=== PATIENT | female | born 1970 | race Caucasian/White ===

== ENCOUNTER 2017-01-01 07:28 | Emergency (ER) | payer OTHER ==
[~2017-01-01] VITALS: Ht 165.1 cm; Wt 45.4 kg
[~2017-01-01 07:28] MED LIST: ALPR0.5T PO; DIAZ5TAB4 PO; NAPR500T8 PO
[2017-01-01 07:46] VITALS: BP 129/79
[2017-01-01] MEDS ORDERED: AZIT250T6 PO (08:02)
[2017-01-01] MEDS ORDERED: PRED20TA PO (08:02)
--- NOTE | 2017-01-01 14:46 | ED.ADGEN ---
Past History Past Medical History: Anxiety, Asthma, Depression Past Surgical History: Hysterectomy, Tonsillectomy Smoking: Cigarettes Additional Smoking Information: 1/2 PACK A DAY Alcohol Use: None Drug Use: None Adult General HPI HPI Patient is a 46-year-old female presents emergency department complaining of cough and congestion over the last 4 days. She does have a history of asthma and is currently a smoker. Patient states that she has had a throat lasted for her symptoms but no other prehospital intervention. Subjective fevers. Review of Systems Review of Systems Constitutional: Denies fever or chills [] Eyes: Denies change in visual acuity, redness, or eye pain [] HENT: Denies nasal congestion or sore throat [] Respiratory: Denies cough or shortness of breath [] Cardiovascular: No additional information not addressed in HPI [] GI: Denies abdominal pain, nausea, vomiting, bloody stools or diarrhea [] : Denies dysuria or hematuria [] Musculoskeletal: Denies back pain or joint pain [] Integument: Denies rash or skin lesions [] Neurologic: Denies headache, focal weakness or sensory changes [] Endocrine: Denies polyuria or polydipsia [] Allergies Allergies Allergies Coded Allergies Type Severity Reaction Last Updated Verified nitrofurantoin Allergy Severe sob/anxiety 04/30/16 Yes Physical Exam Physical Exam Constitutional: Well developed, well nourished, no acute distress, non-toxic appearance. [] HENT: Normocephalic, atraumatic, bilateral external ears normal, oropharynx moist, no oral exudates, nose normal. [] Eyes: PERRLA, EOMI, conjunctiva normal, no discharge. [] Neck: Normal range of motion, no tenderness, supple, no stridor. [] Cardiovascular:Heart rate regular rhythm, no murmur [] Lungs & Thorax: Bilateral breath sounds course to auscultation [] Abdomen: Bowel sounds normal, soft, no tenderness, no masses, no pulsatile masses. [] Skin: Warm, dry, no erythema, no rash. [] Back: No tenderness, no CVA tenderness. [] Extremities: No tenderness, no cyanosis, no clubbing, ROM intact, no edema. [] Neurologic: Alert and oriented X 3, normal motor function, normal sensory function, no focal deficits noted. [] Psychologic: Affect normal, judgement normal, mood normal. [] Current Patient Data Vital Signs Vital Signs Date Time Temp Pulse Resp B/P Pulse Ox O2 Delivery O2 Flow Rate FiO2 01/01/17 07:46 98.2 99 18 97 Room Air EKG EKG [] Radiology/Procedures Radiology/Procedures [] Course & Med Decision Making Course & Med Decision Making Pertinent Labs and Imaging studies reviewed. (See chart for details) Overall, the patient looks fairly well. She by has an upper story infection versus bronchitis however given her comorbidities of asthma and tobaccoism I do not find unreasonable start her on azithromycin as well as a steroid burst. She is given further supportive care and follow-up instructions. [] Final Impression Final Impression Acute bronchitis [] Problems: Dragon Disclaimer Dragon Disclaimer This electronic medical record was generated, in whole or in part, using a voice recognition dictation system. KOTA EARLY MD Jan 01, 2017 14:46
== END 2017-01-01 08:10 | disposition home or self-care (01) ==
LOC: ER 07:28
DX: J20.9 Acute bronchitis, unspecified (principal); J45.909 Unspecified asthma, uncomplicated; F17.210 Nicotine dependence, cigarettes, uncomplicated; Z88.8 Allergy status to other drugs, medicaments and biological substances
CPT/HCPCS: 99283

== ENCOUNTER → 2017-11-16 | Outpatient (CLI) | payer OTHER ==
[~2017-11-16] MED LIST changes: +AZIT250T6 PO; +PRED20TA PO
[2017-11-16 08:03] LABS: BASO # 0.1 x10^3/uL (0.0-0.2); BASO % 1 % (0-3); EOS # 0.3 x10^3/uL (0.0-0.7); EOS % 5 % (0-3); HEMATOCRIT 43.8 % (36.0-47.0); HEMOGLOBIN 15.1 g/dL (12.0-15.5); LYMPH # 2.9 x10^3/uL (1.0-4.8); LYMPH % 38 % (24-48); MEAN CORPUSCULAR HEMOGLOBIN 32 pg (25-35); MEAN CORPUSCULAR HGB CONC 34 g/dL (31-37); MEAN CORPUSCULAR VOLUME 92 fL (79-100); MONO # 0.6 x10^3/uL (0.0-1.1); MONO % 8 % (0-9); NEUT # 3.6 x10^3uL (1.8-7.7); NEUT % 48 % (31-73); PLATELET COUNT 249 x10^3/uL (140-400); RED BLOOD COUNT 4.75 x10^6/uL (3.50-5.40); RED CELL DISTRIBUTION WIDTH 13.2 % (11.5-14.5); WHITE BLOOD COUNT 7.5 x10^3/uL (4.0-11.0)
== END | disposition home or self-care (01) ==
LOC: LAB 07:32
PROVIDERS: ATTEND Family Medicine
DX: J02.9 Acute pharyngitis, unspecified (principal)
CPT/HCPCS: 36415; 85025; 87070; 87880

== ENCOUNTER → 2017-11-25 | Outpatient (CLI) | payer OTHER ==
[2017-11-25 14:19] LABS: FREE T4 0.73 ng/dL (0.76-1.46); THYROID STIM HORMONE (TSH) 6.342 uIU/mL (0.358-3.740)
== END | disposition home or self-care (01) ==
LOC: LAB 10:03
PROVIDERS: ATTEND Family Medicine
DX: R53.83 Other fatigue (principal); R63.5 Abnormal weight gain
CPT/HCPCS: 84439; 84443

== ENCOUNTER 2018-07-04 21:39 | Emergency (ER) | payer OTHER ==
[~2018-07-04] VITALS: Ht 165.1 cm; Wt 65.8 kg
[2018-07-04 21:57] VITALS: BP 105/80
[2018-07-04] MEDS ORDERED: IBUPROFEN 400 MG TABLET. PO ONE (22:15)
--- NOTE | 2018-07-04 22:28 | RAD ---
History: Injury, pain. Comparison: None. Findings: PA, lateral, and oblique views of the left wrist. No acute fracture or dislocation is identified. PA, lateral, and oblique views of the left hand. No acute fracture or dislocation is identified. Suture anchor can be seen involving the ulnar base of the 1st proximal phalanx. Impression: No acute osseous traumatic injury identified in the left wrist or left hand. Electronically signed by: Pancho Baker MD (07/04/2018 10:25 PM) [facility]
--- NOTE | 2018-07-04 22:55 | PHYS DOC ---
Past History Past Medical History: Anxiety, Asthma, Depression Past Surgical History: Hysterectomy, Tonsillectomy Smoking: Cigarettes Alcohol Use: None Drug Use: None Adult General Chief Complaint Chief Complaint: UPPER EXTREMITY INJURY HPI HPI 47-year-old female presents with mechanical trip and fall while going into work at [employer] just prior to arrival. Reports fell on outstretched left hand and wrist with subsequent pain. Denies deformity. Denies head trauma or neck pain. Denies use of blood thinners. Review of Systems Review of Systems Constitutional: Denies fever or chills [] Eyes: Denies change in visual acuity, redness, or eye pain [] HENT: Denies nasal congestion or sore throat [] Respiratory: Denies cough or shortness of breath [] Cardiovascular: Denies chest pain or palpitations GI: Denies abdominal pain, nausea, vomiting, or diarrhea [] : Denies dysuria or hematuria [] Musculoskeletal: Denies back pain; reports left hand/wrist pain Integument: Denies rash or skin lesions [] Neurologic: Denies headache, focal weakness or sensory changes [] Complete systems were reviewed and found to be within normal limits, except as documented in this note. Current Medications Current Medications Current Medications Medications (Trade) Dose Ordered Sig/Nahun Start Time Stop Time Status Last Admin Dose Admin Ibuprofen (Motrin) 400 mg 1X ONCE 07/04/18 22:15 07/04/18 22:19 DC 07/04/18 22:30 400 MG Allergies Allergies Allergies Coded Allergies Type Severity Reaction Last Updated Verified nitrofurantoin Allergy Severe sob/anxiety 04/30/16 Yes Physical Exam Physical Exam Constitutional: Well developed, well nourished, no acute distress, non-toxic appearance. [] HENT: Normocephalic, atraumatic Eyes: Conjunctiva normal, no discharge. [] Neck: Normal range of motion, no midline tenderness, supple Cardiovascular: Heart rate regular rhythm, no murmur [] Lungs & Thorax: Bilateral breath sounds clear to auscultation [] Abdomen: Soft, no tenderness Skin: Warm, dry, no erythema, no rash. [] Back: No tenderness, no CVA tenderness. [] Extremities: left wrist and hand with pain to lateral aspect, Small contusion/ abrasion noted, no laceration Neurologic: Alert and oriented X 3, normal motor function, normal sensory function, no focal deficits noted. [] Psychologic: Affect normal, judgement normal, mood normal. [] Current Patient Data Vital Signs Vital Signs Date Time Temp Pulse Resp B/P (MAP) Pulse Ox O2 Delivery O2 Flow Rate FiO2 07/04/18 21:57 97.7 78 18 96 Room Air EKG EKG [] Radiology/Procedures Radiology/Procedures PROCEDURE: WRIST 3V LEFT History: Injury, pain. Comparison: None. Findings: PA, lateral, and oblique views of the left wrist. No acute fracture or dislocation is identified. PA, lateral, and oblique views of the left hand. No acute fracture or dislocation is identified. Suture anchor can be seen involving the ulnar base of the 1st proximal phalanx. Impression: No acute osseous traumatic injury identified in the left wrist or left hand. Electronically signed by: Pancho Baker MD (07/04/2018 10:25 PM) [facility] PROCEDURE: HAND LEFT 3V History: Injury, pain. Comparison: None. Findings: PA, lateral, and oblique views of the left wrist. No acute fracture or dislocation is identified. PA, lateral, and oblique views of the left hand. No acute fracture or dislocation is identified. Suture anchor can be seen involving the ulnar base of the 1st proximal phalanx. Impression: No acute osseous traumatic injury identified in the left wrist or left hand. Electronically signed by: Pancho Baker MD (07/04/2018 10:25 PM) [facility] Course & Med Decision Making Course & Med Decision Making 47-year-old female presents with mechanical trip and fall onto left wrist and hand with subsequent pain to 4th and 5th metacarpals. Symptomatic treatment provided. Ice applied. X-ray obtained without acute fracture or dislocation. [place] wrist splint applied. Patient stable for discharge with outpatient follow-up with PCP/orthopedics. Orthopedic referral provided. Discussed findings and plan with patient, who acknowledges understanding and agreement. Dragon Disclaimer Dragon Disclaimer This electronic medical record was generated, in whole or in part, using a voice recognition dictation system. Splinting Splinting : Location: left wrist Pre-Made Type: velcro (universal wrist splint) Pre-Proc Neuro Vasc Exam: normal Post-Proc Neuro Vasc Exam: normal, unchanged from pre-exam Departure Departure: Impression: Primary Impression: Left wrist sprain Disposition: 01 HOME, SELF-CARE Condition: STABLE Referrals: ANYI DONAHUE (PCP) Patient Instructions: RICE - Routine Care for Injuries, [id number], Wrist Splint, [id number], Wrist Sprain with Rehab-SportsMed Additional Instructions: Use over the counter Tylenol or Ibuprofen for pain or discomfort. Problem Qualifiers Primary Impression: Left wrist sprain Encounter type: initial encounter Qualified Codes: S63.502A - Unspecified sprain of left wrist, initial encounter PANCHO GOMEZ DO Jul 04, 2018 22:55
== END 2018-07-04 23:00 | disposition home or self-care (01) ==
LOC: ER 21:39
DX: S63.502A Unspecified sprain of left wrist, initial encounter (principal); J45.909 Unspecified asthma, uncomplicated; F17.210 Nicotine dependence, cigarettes, uncomplicated; Z88.8 Allergy status to other drugs, medicaments and biological substances; W01.0XXA Fall on same level from slipping, tripping and stumbling without subsequent striking against object, initial encounter; Y93.89 Activity, other specified; Y92.89 Other specified places as the place of occurrence of the external cause; Y99.0 Civilian activity done for income or pay
CPT/HCPCS: 29125; 73110; 73130; 99284

== ENCOUNTER 2019-01-18 19:12 | Emergency (ER) | payer OTHER ==
[~2019-01-18] VITALS: Ht 165.1 cm; Wt 65.9 kg
[2019-01-18] MEDS ORDERED: IOHEXOL 300 MG/ML 75 ML VIAL. IV ONE (20:00)
[2019-01-18] MEDS ORDERED: MORPHINE SULFATE 4 MG/ML DISP.SYRIN. IV/SQ PRN (20:00)
--- NOTE | 2019-01-18 20:07 | PHYS DOC ---
Past History Past Medical History: Anxiety, Asthma, Depression Past Surgical History: Hysterectomy, Tonsillectomy Smoking: Cigarettes Alcohol Use: None Drug Use: None Adult General Chief Complaint Chief Complaint: ABDOMINAL PAIN HPI HPI Patient is a 48 y/o WF, who presents to the emergency department for evaluation of abdominal pain, which has developed over the past 3-[address] Ch, and was told that she thought she might have a hernia but had no diagnostic testing done. The patient states that the pain is worsened over the past few days. She states that she states she has a hernia in her umbilical area, and the pain radiates throughout the left part of her abdomen towards her left groin. She has had some constipation, but no nausea, vomiting, diarrhea, or bloody stools. There are no alleviating or exacerbating factors to her symptoms otherwise. Review of Systems Review of Systems Constitutional: Denies fever or chills [] Eyes: Denies change in visual acuity, redness, or eye pain [] HENT: Denies nasal congestion or sore throat [] Respiratory: Denies cough or shortness of breath [] Cardiovascular: The patient denies any shortness of breath, chest pain, palpitations, or orthopnea[] GI: No additional information not addressed in HPI [] : Denies dysuria or hematuria [] Musculoskeletal: Denies back pain or joint pain [] Integument: Denies rash or skin lesions [] Neurologic: Denies headache, focal weakness or sensory changes [] Endocrine: Denies polyuria or polydipsia [] All other systems were reviewed and found to be within normal limits, except as documented in this note. Current Medications Current Medications Current Medications Medications (Trade) Dose Ordered Sig/Nahun Start Time Stop Time Status Last Admin Dose Admin Iohexol (Omnipaque 300 Mg/ml) 75 ml 1X ONCE 01/18/19 20:00 01/18/19 20:01 DC Morphine Sulfate (Morphine 4mg Syringe) 4 mg PRN Q15MIN PRN 01/18/19 20:00 01/19/19 19:59 Allergies Allergies Allergies Coded Allergies Type Severity Reaction Last Updated Verified nitrofurantoin Allergy Severe sob/anxiety 04/30/16 Yes Physical Exam Physical Exam PHYSICAL EXAM: CONSTITUTIONAL: Well developed, well nourished HEAD: normocephalic, atraumatic EENT: PERRL, EOMI. Conjunctivae normal color, sclerae non-icteric; moist mucous membranes. NECK: Supple, non-tender; no meningismus. LUNGS: Lungs CTA, breathing even and unlabored. Normal air movement. HEART: Regular rate and rhythm, no murmur CHEST: No deformity; non-tender ABDOMEN: The abdomen is soft, there is tenderness to palpation diffusely in the left lower abdomen, and more focally in the periumbilical area. There appears to be a small umbilical hernia, although the presence of bowel in the hernia is unable to be determined clinically. Normal bowel sounds are present. There is no rebound or guarding. EXTREM: Normal ROM; no deformity, no calf tenderness. Normal pulses palpable in all extremities. There is no pedal edema. SKIN: No rash; no diaphoresis NEURO: Alert; normal speech and cognition; CN's grossly intact; strength grossly intact without focal deficit. BACK: No CVA TTP. Current Patient Data Vital Signs Vital Signs Date Time Temp Pulse Resp B/P (MAP) Pulse Ox O2 Delivery O2 Flow Rate FiO2 01/18/19 19:44 97.8 75 18 98 Room Air Lab Results Laboratory Tests Test 01/18/19 20:09 01/18/19 20:51 White Blood Count 6.1 x10^3/uL Red Blood Count 4.53 x10^6/uL Hemoglobin 14.0 g/dL Hematocrit 41.3 % Mean Corpuscular Volume 91 fL Mean Corpuscular Hemoglobin 31 pg Mean Corpuscular Hemoglobin Concent 34 g/dL Red Cell Distribution Width 13.4 % Platelet Count 258 x10^3/uL Neutrophils (%) (Auto) 45 % Lymphocytes (%) (Auto) 40 % Monocytes (%) (Auto) 9 % Eosinophils (%) (Auto) 4 % Basophils (%) (Auto) 1 % Neutrophils # (Auto) 2.7 x10^3uL Lymphocytes # (Auto) 2.4 x10^3/uL Monocytes # (Auto) 0.6 x10^3/uL Eosinophils # (Auto) 0.3 x10^3/uL Basophils # (Auto) 0.1 x10^3/uL Sodium Level 140 mmol/L Potassium Level 4.1 mmol/L Chloride Level 103 mmol/L Carbon Dioxide Level 30 mmol/L Anion Gap 7 Blood Urea Nitrogen 7 mg/dL Creatinine 0.8 mg/dL Estimated GFR (Cockcroft-Gault) 77.2 BUN/Creatinine Ratio 9 Glucose Level 86 mg/dL Lactic Acid Level 0.6 mmol/L Calcium Level 8.6 mg/dL Total Bilirubin 0.2 mg/dL Aspartate Amino Transf (AST/SGOT) 17 U/L Alanine Aminotransferase (ALT/SGPT) 14 U/L Alkaline Phosphatase 85 U/L Total Protein 7.1 g/dL Albumin 3.6 g/dL Albumin/Globulin Ratio 1.0 Lipase 144 U/L Urine Collection Type Unknown Urine Color Yellow Urine Clarity Hazy Urine pH 7.0 Urine Specific [place] 1.020 Urine Protein Neg Urine Glucose (UA) Neg mg/dL Urine Ketones (Stick) Neg mg/dL Urine Blood Trace Urine Nitrite Neg Urine Bilirubin Neg Urine Urobilinogen Dipstick 0.2 mg/dL Urine Leukocyte Esterase Neg Urine RBC 0 /HPF Urine WBC 0 /HPF Urine Squamous Epithelial Cells Occ /LPF Urine Bacteria 0 /HPF Current Medications Medications (Trade) Dose Ordered Sig/Nahun Route PRN Reason Start Time Stop Time Status Last Admin Dose Admin Morphine Sulfate (Morphine 4mg Syringe) 4 mg PRN Q15MIN PRN IV/SQ PAIN GREATER THAN 3/10 01/18/19 20:00 01/19/19 19:59 Iohexol (Omnipaque 300 Mg/ml) 75 ml 1X ONCE IV 01/18/19 20:00 01/18/19 20:01 DC 01/18/19 20:50 Acetaminophen (Tylenol) 650 mg 1X ONCE PO 01/18/19 21:00 01/18/19 21:05 DC 01/18/19 21:03 EKG EKG [] Radiology/Procedures Radiology/Procedures [PROCEDURE: CT ABD PELV W/ IV CONTRST ONLY CT ABD PELV W/ IV CONTRST ONLY Indication: Omni 300 75cc: Abdomen and groin pain, nausea, constipation x 1 week. Hx: Hysterectomy Exposure: One or more of the following individualized dose reduction techniques were utilized for this examination: 1. Automated exposure control 2. Adjustment of the mA and/or kV according to patient size 3. Use of iterative reconstruction technique. Technique: Intravenous contrast was given. No oral contrast per request. Lung bases are clear. Several very small liver lesions are seen throughout, too small to characterize but likely benign in the absence of any other risk factors. Spleen not enlarged. Pancreas demonstrates no inflammatory type change. No evidence of adrenal mass. Kidneys demonstrate symmetric enhancement without focal lesion or hydronephrosis. No calcified gallstone. Aorta is calcified without evidence of aneurysm. No significant lymph node enlargement. No significant small bowel distention. No evidence of acute colitis. Mild retained stool in the colon. The appendix appears within normal limits. No evidence of ascites. No pneumoperitoneum is identified. No evidence of pelvic mass. Urinary bladder is thick-walled, although this is partially due to incomplete distention. Vertebral body height and alignment intact. IMPRESSION: 1. Mild urinary bladder wall thickening, may all be due to incomplete distention, unless there are signs of cystitis. 2. Otherwise no acute findings. 3. Small liver lesions are too small to characterize, but would most commonly be benign in the absence of other risk factors.] Course & Med Decision Making Course & Med Decision Making Pertinent Labs and Imaging studies reviewed. (See chart for details) []Patient remains stable. I discussed test results, the need for close follow- up, and return precautions. I did review the CT images. There does appear to be a small umbilical hernia possibly containing some abdominal fat but no bowel herniation. Dragon Disclaimer Dragon Disclaimer This electronic medical record was generated, in whole or in part, using a voice recognition dictation system. Departure Departure: Impression: Primary Impression: Abdominal pain Disposition: 01 HOME, SELF-CARE Condition: STABLE Referrals: ANYI DONAHUE (PCP) Patient Instructions: Abdominal Pain, Hernia KOTA ELAINE MD January 18, 2019 20:07
[2019-01-18 20:21] LABS: BASO # 0.1 x10^3/uL (0.0-0.2); BASO % 1 % (0-3); EOS # 0.3 x10^3/uL (0.0-0.7); EOS % 4 % (0-3); HEMATOCRIT 41.3 % (36.0-47.0); LYMPH # 2.4 x10^3/uL (1.0-4.8); LYMPH % 40 % (24-48); MEAN CORPUSCULAR HEMOGLOBIN 31 pg (25-35); MEAN CORPUSCULAR HGB CONC 34 g/dL (31-37); MEAN CORPUSCULAR VOLUME 91 fL (79-100); MONO # 0.6 x10^3/uL (0.0-1.1); MONO % 9 % (0-9); NEUT # 2.7 x10^3uL (1.8-7.7); NEUT % 45 % (31-73); PLATELET COUNT 258 x10^3/uL (140-400); RED BLOOD COUNT 4.53 x10^6/uL (3.50-5.40); RED CELL DISTRIBUTION WIDTH 13.4 % (11.5-14.5); WHITE BLOOD COUNT 6.1 x10^3/uL (4.0-11.0)
[2019-01-18 20:36] LABS: ALBUMIN 3.6 g/dL (3.4-5.0); CALCIUM 8.6 mg/dL (8.5-10.1); CREATININE 0.8 mg/dL (0.6-1.0); GFR 77.2; POTASSIUM 4.1 mmol/L (3.5-5.1); TOTAL BILIRUBIN 0.2 mg/dL (0.2-1.0); TOTAL PROTEIN 7.1 g/dL (6.4-8.2)
[2019-01-18] MEDS ORDERED: ACETAMINOPHEN 325 MG TABLET PO ONE (21:00)
[2019-01-18 21:05] LABS: BILIRUBIN,URINE NEG (NEG); CLARITY,URINE HAZY; COLOR,URINE YELLOW; GLUCOSE,URINE NEG (NEG); NITRITE,URINE NEG (NEG); UROBILINOGEN,URINE 0.2 mg/dL (0.2 mg/dL)
[2019-01-18 21:06] LABS: BACTERIA,URINE 0 /HPF (0-FEW); RBC,URINE 0 /HPF (0-2); SQUAMOUS EPITHELIAL CELL,UR OCC /LPF; WBC,URINE 0 /HPF (0-4)
--- NOTE | 2019-01-18 21:22 | RAD ---
CT ABD PELV W/ IV CONTRST ONLY Indication: Omni 300 75cc: Abdomen and groin pain, nausea, constipation x 1 week. Hx: Hysterectomy Exposure: One or more of the following individualized dose reduction techniques were utilized for this examination: 1. Automated exposure control 2. Adjustment of the mA and/or kV according to patient size 3. Use of iterative reconstruction technique. Technique: Intravenous contrast was given. No oral contrast per request. Lung bases are clear. Several very small liver lesions are seen throughout, too small to characterize but likely benign in the absence of any other risk factors. Spleen not enlarged. Pancreas demonstrates no inflammatory type change. No evidence of adrenal mass. Kidneys demonstrate symmetric enhancement without focal lesion or hydronephrosis. No calcified gallstone. Aorta is calcified without evidence of aneurysm. No significant lymph node enlargement. No significant small bowel distention. No evidence of acute colitis. Mild retained stool in the colon. The appendix appears within normal limits. No evidence of ascites. No pneumoperitoneum is identified. No evidence of pelvic mass. Urinary bladder is thick-walled, although this is partially due to incomplete distention. Vertebral body height and alignment intact. IMPRESSION: 1. Mild urinary bladder wall thickening, may all be due to incomplete distention, unless there are signs of cystitis. 2. Otherwise no acute findings. 3. Small liver lesions are too small to characterize, but would most commonly be benign in the absence of other risk factors. Electronically signed by: Pancho Kwan MD (01/18/2019 9:19 PM) [facility]
[2019-01-18 21:33] VITALS: BP 125/83
== END 2019-01-18 22:15 | disposition home or self-care (01) ==
LOC: ER 19:12
DX: R10.33 Periumbilical pain (principal); R10.32 Left lower quadrant pain; K59.00 Constipation, unspecified; F41.9 Anxiety disorder, unspecified; J45.909 Unspecified asthma, uncomplicated; J32.9 Chronic sinusitis, unspecified; F17.210 Nicotine dependence, cigarettes, uncomplicated; Z90.710 Acquired absence of both cervix and uterus; Z88.8 Allergy status to other drugs, medicaments and biological substances
CPT/HCPCS: 36415; 74177; 80053; 81001; 83605; 83690; 85025; 99285; Q9967

== ENCOUNTER 2019-02-13 10:11 | Emergency (ER) | payer OTHER ==
[~2019-02-13] VITALS: Ht 165.1 cm; Wt 68.0 kg
[2019-02-13] MEDS ORDERED: IPRATRPIUM/ALBUTEROL 0.5/2.5MG 3 ML NEBU. NEB ONE (10:30)
[2019-02-13 10:32] LABS: BASO # 0.1 x10^3/uL (0.0-0.2); BASO % 1 % (0-3); EOS # 0.2 x10^3/uL (0.0-0.7); EOS % 2 % (0-3); HEMATOCRIT 43.5 % (36.0-47.0); HEMOGLOBIN 14.7 g/dL (12.0-15.5); LYMPH # 2.5 x10^3/uL (1.0-4.8); LYMPH % 25 % (24-48); MEAN CORPUSCULAR HEMOGLOBIN 31 pg (25-35); MEAN CORPUSCULAR HGB CONC 34 g/dL (31-37); MEAN CORPUSCULAR VOLUME 92 fL (79-100); MONO # 0.8 x10^3/uL (0.0-1.1); MONO % 8 % (0-9); NEUT # 6.6 x10^3uL (1.8-7.7); NEUT % 65 % (31-73); PLATELET COUNT 245 x10^3/uL (140-400); RED BLOOD COUNT 4.74 x10^6/uL (3.50-5.40); RED CELL DISTRIBUTION WIDTH 13.4 % (11.5-14.5); WHITE BLOOD COUNT 10.1 x10^3/uL (4.0-11.0)
[2019-02-13 10:45] LABS: ALBUMIN 3.7 g/dL (3.4-5.0); ALBUMIN/GLOBULIN RATIO 1.1 (1.0-1.7); CREATININE 0.8 mg/dL (0.6-1.0); GFR 77.2; TOTAL BILIRUBIN 0.2 mg/dL (0.2-1.0); TOTAL PROTEIN 7.2 g/dL (6.4-8.2)
--- NOTE | 2019-02-13 10:45 | RAD ---
CHEST PA LATERAL Clinical indications: Shortness of breath. Cough. COMPARISON: November 30, 2015. Findings: No acute lung infiltrate or pleural effusion or pulmonary edema or lung mass or pneumothorax is seen. The heart size, pulmonary vasculature, mediastinum and both joo are unremarkable. The osseous structures appear intact. Impression: No acute radiographic abnormality is seen. Electronically signed by: Kamron Pack MD (02/13/2019 10:42 AM) [id number]
[2019-02-13] MEDS ORDERED: methylPREDNISolone SOD SUCC PF 125 MG/2 ML VIAL. IV ONE (11:00)
[2019-02-13] MEDS ORDERED: PRED-220 PO (11:03)
[2019-02-13] MEDS ORDERED: IPRA12.9 IH (11:03)
--- NOTE | 2019-02-13 11:03 | PHYS DOC ---
Past History Past Medical History: Anxiety, Asthma, Depression Past Surgical History: Hysterectomy, Tonsillectomy Smoking: Cigarettes Alcohol Use: None Drug Use: None Adult General Chief Complaint Chief Complaint: SHORTNESS OF BREATH HPI HPI 48-year-old female presents with cough and shortness of breath. The patient has had increased cough with sputum production. 3 days. She now has a wet cough, but cannot seem to cough very much up. Patient has a history of asthma. She is also a cigarette smoker for many years. She has been using her albuterol MDI without a spacer several times a day but this does not seem to be helping. She has some chest wall discomfort, mostly with the coughing. She has not measured a fever at home. Review of Systems Review of Systems Constitutional: Denies fever or chills [] Eyes: Denies change in visual acuity, redness, or eye pain [] HENT: Denies nasal congestion or sore throat [] Respiratory: Cough with shortness of breath [] Cardiovascular: No additional information not addressed in HPI [] GI: Denies abdominal pain, nausea, vomiting, bloody stools or diarrhea [] : Denies dysuria or hematuria [] Musculoskeletal: Denies back pain or joint pain [] Integument: Denies rash or skin lesions [] Neurologic: Denies headache, focal weakness or sensory changes [] Endocrine: Denies polyuria or polydipsia [] All other systems were reviewed and found to be within normal limits, except as documented in this note. Current Medications Current Medications Current Medications Medications (Trade) Dose Ordered Sig/Nahun Start Time Stop Time Status Last Admin Dose Admin Albuterol/ Ipratropium (Duoneb) 3 ml 1X ONCE 02/13/19 10:30 02/13/19 10:49 DC 02/13/19 10:41 3 ML Allergies Allergies Allergies Coded Allergies Type Severity Reaction Last Updated Verified nitrofurantoin Allergy Severe sob/anxiety 04/30/16 Yes Physical Exam Physical Exam Constitutional: Well developed, well nourished, no acute distress, non-toxic appearance. [] HENT: Normocephalic, atraumatic, bilateral external ears normal, oropharynx moist, no oral exudates, nose normal. [] Eyes: PERRLA, EOMI, conjunctiva normal, no discharge. [] Neck: Normal range of motion, no tenderness, supple, no stridor. [] Cardiovascular:Heart rate regular rhythm, no murmur [] Lungs & Thorax: Bilateral breath sounds diminished with end-expiratory wheezing[] Abdomen: Bowel sounds normal, soft, no tenderness, no masses, no pulsatile masses. [] Skin: Warm, dry, no erythema, no rash. [] Back: No tenderness, no CVA tenderness. [] Extremities: No tenderness, no cyanosis, no clubbing, ROM intact, no edema. [] Neurologic: Alert and oriented X 3, normal motor function, normal sensory function, no focal deficits noted. [] Psychologic: Affect normal, judgement normal, mood normal. [] Current Patient Data Vital Signs Vital Signs Date Time Temp Pulse Resp B/P (MAP) Pulse Ox O2 Delivery O2 Flow Rate FiO2 02/13/19 10:47 86 18 126/62 (83) 99 Room Air 02/13/19 10:17 98.0 Lab Results Laboratory Tests Test 02/13/19 10:20 White Blood Count 10.1 x10^3/uL (4.0-11.0) Red Blood Count 4.74 x10^6/uL (3.50-5.40) Hemoglobin 14.7 g/dL (12.0-15.5) Hematocrit 43.5 % (36.0-47.0) Mean Corpuscular Volume 92 fL (79-100) Mean Corpuscular Hemoglobin 31 pg (25-35) Mean Corpuscular Hemoglobin Concent 34 g/dL (31-37) Red Cell Distribution Width 13.4 % (11.5-14.5) Platelet Count 245 x10^3/uL (140-400) Neutrophils (%) (Auto) 65 % (31-73) Lymphocytes (%) (Auto) 25 % (24-48) Monocytes (%) (Auto) 8 % (0-9) Eosinophils (%) (Auto) 2 % (0-3) Basophils (%) (Auto) 1 % (0-3) Neutrophils # (Auto) 6.6 x10^3uL (1.8-7.7) Lymphocytes # (Auto) 2.5 x10^3/uL (1.0-4.8) Monocytes # (Auto) 0.8 x10^3/uL (0.0-1.1) Eosinophils # (Auto) 0.2 x10^3/uL (0.0-0.7) Basophils # (Auto) 0.1 x10^3/uL (0.0-0.2) Sodium Level 142 mmol/L (136-145) Potassium Level 4.0 mmol/L (3.5-5.1) Chloride Level 105 mmol/L (98-107) Carbon Dioxide Level 28 mmol/L (21-32) Anion Gap 9 (6-14) Blood Urea Nitrogen 5 mg/dL (7-20) L Creatinine 0.8 mg/dL (0.6-1.0) Estimated GFR (Cockcroft-Gault) 77.2 BUN/Creatinine Ratio 6 (6-20) Glucose Level 88 mg/dL (70-99) Calcium Level 9.0 mg/dL (8.5-10.1) Total Bilirubin 0.2 mg/dL (0.2-1.0) Aspartate Amino Transferase (AST) 14 U/L (15-37) L Alanine Aminotransferase (ALT) 15 U/L (14-59) Alkaline Phosphatase 92 U/L (46-116) Total Protein 7.2 g/dL (6.4-8.2) Albumin 3.7 g/dL (3.4-5.0) Albumin/Globulin Ratio 1.1 (1.0-1.7) EKG EKG [] Radiology/Procedures Radiology/Procedures [] Impressions: CHEST PA LATERAL Clinical indications: Shortness of breath. Cough. COMPARISON: November 30, 2015. Findings: No acute lung infiltrate or pleural effusion or pulmonary edema or lung mass or pneumothorax is seen. The heart size, pulmonary vasculature, mediastinum and both joo are unremarkable. The osseous structures appear intact. Impression: No acute radiographic abnormality is seen. Electronically signed by: Noe Pack MD (02/13/2019 10:42 AM) [id number] DICTATED AND SIGNED BY: NOE PACK MD DATE: 02/13/19 1042 CC: KAREN CORDON DO; ANYI DONAHUE ~ Course & Med Decision Making Course & Med Decision Making Pertinent Labs and Imaging studies reviewed. (See chart for details) The patient's vitals were within normal limits. Her O2 saturation is 96%. We will try a DuoNeb. Her labs are unremarkable. Her chest x-rays negative for acute findings. This is likely a COPD exacerbation. I will treat her with 125 of Solu-Medrol as well as 3 more days of prednisone at home. I will also give her prescription for atrovent QID for home. She will follow-up with her PCP to determine if she should be on this medication fdc. She is stable for discharge at this time. [] Dragon Disclaimer Dragon Disclaimer This electronic medical record was generated, in whole or in part, using a voice recognition dictation system. Departure Departure: Impression: Primary Impression: COPD exacerbation Disposition: HOME, SELF-CARE Condition: STABLE Referrals: ANYI DONAHUE (PCP) Patient Instructions: Chronic Obstructive Pulmonary Disease Exacerbation, [id number] Scripts Ipratropium [place] (ATROVENT HFA) 12.9 Gm Hfa.aer.ad 2 PUFF IH QID PRN for SHORTNESS OF BREATH, #1 INHALER Prov: KAREN CORDON DO 02/13/19 Prednisone (PREDNISONE) 10 Mg Tablet 50 MG PO DAILY for copd exacerbation for 3 Days, #15 TAB Prov: KAREN CORDON DO 02/13/19 KAREN CORDON DO February 13, 2019 11:03
[2019-02-13 11:15] VITALS: BP 105/73
== END 2019-02-13 11:30 | disposition home or self-care (01) ==
LOC: ER 10:11
DX: J44.1 Chronic obstructive pulmonary disease with (acute) exacerbation (principal); F41.9 Anxiety disorder, unspecified; F32.9 Major depressive disorder, single episode, unspecified; F17.210 Nicotine dependence, cigarettes, uncomplicated; Z88.8 Allergy status to other drugs, medicaments and biological substances
CPT/HCPCS: 36415; 71046; 80053; 85025; 94640; 96374; 99285; J2930; J7620

== ENCOUNTER → 2019-02-24 | Outpatient (CLI) | payer OTHER ==
[2019-02-13 11:15] VITALS: BP 105/73
[~2019-02-24] MED LIST changes: +IPRA12.9 IH; +PRED-220 PO
[2019-02-24 10:33] LABS: BASO # 0.1 x10^3/uL (0.0-0.2); BASO % 1 % (0-3); EOS # 0.3 x10^3/uL (0.0-0.7); EOS % 3 % (0-3); HEMATOCRIT 44.4 % (36.0-47.0); HEMOGLOBIN 14.8 g/dL (12.0-15.5); LYMPH # 2.6 x10^3/uL (1.0-4.8); LYMPH % 23 % (24-48); MEAN CORPUSCULAR HEMOGLOBIN 31 pg (25-35); MEAN CORPUSCULAR HGB CONC 33 g/dL (31-37); MEAN CORPUSCULAR VOLUME 91 fL (79-100); MONO # 0.9 x10^3/uL (0.0-1.1); MONO % 7 % (0-9); NEUT # 7.7 x10^3uL (1.8-7.7); NEUT % 67 % (31-73); PLATELET COUNT 270 x10^3/uL (140-400); RED BLOOD COUNT 4.85 x10^6/uL (3.50-5.40); RED CELL DISTRIBUTION WIDTH 13.3 % (11.5-14.5); WHITE BLOOD COUNT 11.6 x10^3/uL (4.0-11.0)
[2019-02-24 10:37] LABS: ALBUMIN 3.4 g/dL (3.4-5.0); ALBUMIN/GLOBULIN RATIO 0.9 (1.0-1.7); CALCIUM 8.8 mg/dL (8.5-10.1); CREATININE 0.9 mg/dL (0.6-1.0); GFR 67.4; TOTAL BILIRUBIN 0.5 mg/dL (0.2-1.0); TOTAL PROTEIN 7.3 g/dL (6.4-8.2)
[2019-02-24 10:50] LABS: MONONUCLEOSIS PATIENT NEGATIVE (NEGATIVE)
--- NOTE | 2019-02-24 13:29 | RAD ---
PA and lateral chest x-ray COMPARISON: Chest x-ray February 13, 2019. HISTORY: Cough for one week, COPD, asthma. FINDINGS: Heart size normal. Mediastinal silhouette is normal. No pneumothorax, pulmonary opacities or pleural effusions. The bones are unremarkable. IMPRESSION: No acute process. Electronically signed by: Gio Boykin MD (02/24/2019 1:26 PM) [facility]
== END | disposition home or self-care (01) ==
LOC: PMG 08:39
PROVIDERS: ATTEND Registered Nurse
DX: R05 Cough (principal); J44.9 Chronic obstructive pulmonary disease, unspecified
CPT/HCPCS: 36415; 71046; 80053; 85025; 86308; 87086

== ENCOUNTER → 2019-03-02 | Outpatient (CLI) | payer OTHER ==
[2019-02-13 11:15] VITALS: BP 105/73
[2019-03-02 14:04] LABS: FREE T4 0.7 ng/dL (0.76-1.46); THYROID STIM HORMONE (TSH) 6.05 uIU/mL (0.358-3.740)
== END | disposition home or self-care (01) ==
LOC: PMG 09:02
PROVIDERS: ATTEND Registered Nurse
DX: R53.83 Other fatigue (principal); E07.9 Disorder of thyroid, unspecified; Z79.899 Other long term (current) drug therapy
CPT/HCPCS: 82306; 82607; 84439; 84443

== ENCOUNTER → 2019-04-02 | Outpatient (CLI) | payer OTHER ==
[2019-04-03 13:28] LABS: FREE T4 0.85 ng/dL (0.76-1.46); THYROID STIM HORMONE (TSH) 6.174 uIU/mL (0.358-3.740)
== END | disposition home or self-care (01) ==
LOC: LAB 16:12
PROVIDERS: ATTEND Registered Nurse
DX: E03.9 Hypothyroidism, unspecified (principal)
CPT/HCPCS: 82306; 84439; 84443

== ENCOUNTER → 2019-04-04 | Outpatient (CLI) | payer OTHER ==
[2019-04-05 06:07] LABS: FSH 129.9 mIU/mL (.); LUTEINIZING HORMONE 70.2 mIU/mL (.); PROGESTERONE 0.2 ng/mL (.)
[2019-04-06 00:06] LABS: ESTRADIOL LEVEL <5.0 pg/mL (.)
[2019-04-06 17:07] LABS: DHEA 161 ng/dL (31-701)
[2019-04-07 01:06] LABS: ESTROGEN LEVEL 67 pg/mL (.)
== END | disposition home or self-care (01) ==
LOC: PMG 14:19
PROVIDERS: ATTEND Physician Assistant Medical
DX: F39 Unspecified mood [affective] disorder (principal)
CPT/HCPCS: 36415; 82626; 82670; 82672; 83001; 83002; 84144; 84402; 84403

== ENCOUNTER 2019-09-24 16:50 | Emergency (ER) | payer OTHER ==
[~2019-09-24] VITALS: Ht 165.1 cm; Wt 63.6 kg
[2019-09-24] MEDS ORDERED: DICYCLOMINE HCL 20 MG TABLET PO ONE (17:30)
[2019-09-24] MEDS ORDERED: IV NORMAL SALINE 1,000ML 1,000 ML IV ONE (17:30)
[2019-09-24] MEDS ORDERED: ONDANSETRON PF 4 MG/2 ML VIAL. IV ONE (17:30)
[2019-09-24 17:42] LABS: INFLUENZA A PATIENT NEGATIVE (NEGATIVE); INFLUENZA B PATIENT NEGATIVE (NEGATIVE)
[2019-09-24] MEDS ORDERED: KETOROLAC 15 MG/ML VIAL. IVP ONE (18:00)
[2019-09-24 18:19] LABS: CALCIUM 8.8 mg/dL (8.5-10.1); CREATININE 0.8 mg/dL (0.6-1.0); GFR 77.2; POTASSIUM 3.8 mmol/L (3.5-5.1)
[2019-09-24 18:24] LABS: ALBUMIN 3.6 g/dL (3.4-5.0); ALBUMIN/GLOBULIN RATIO 1.1 (1.0-1.7); TOTAL BILIRUBIN 0.4 mg/dL (0.2-1.0)
--- NOTE | 2019-09-24 18:34 | PHYS DOC ---
Past History Past Medical History: No Pertinent History Past Surgical History: Hysterectomy, Oophorectomy, Tonsillectomy Smoking: Cigarettes Alcohol Use: None Drug Use: None Adult General Chief Complaint Chief Complaint: FLU SYMPTOM HPI HPI Patient is a 48-year-old female presenting with profuse nausea vomiting and diarrhea does have some abdominal soreness related to the profuse vomiting does feel hot and cold at times throughout the day no definite sick contacts are noted. Symptoms are moderate really not coughing much could be worried that she has the flu no recent travel or antibiotic use symptoms are slowly worsening with time Review of Systems Review of Systems Respiratory: Denies cough or shortness of breath [] Cardiovascular: No additional information not addressed in HPI [] GI:[] : Denies dysuria or hematuria [] Integument: Denies rash or skin lesions [] Neurologic: Denies focal weakness or sensory changes [] Endocrine: Denies polyuria or polydipsia [] All other systems were reviewed and found to be within normal limits, except as documented in this note. Current Medications Current Medications Current Medications Medications (Trade) Dose Ordered Sig/Nahun Start Time Stop Time Status Last Admin Dose Admin Dicyclomine HCl (Bentyl) 20 mg 1X ONCE 09/24/19 17:30 09/24/19 17:49 DC 09/24/19 17:55 20 MG Ketorolac Tromethamine (Toradol 15mg Vial) 15 mg 1X ONCE 09/24/19 18:00 09/24/19 18:08 DC 09/24/19 18:03 15 MG Ondansetron HCl (Zofran) 4 mg 1X ONCE 09/24/19 17:30 09/24/19 17:49 DC 09/24/19 17:54 4 MG Sodium Chloride 1,000 ml @ 1,000 mls/hr 1X ONCE 09/24/19 17:30 09/24/19 18:29 DC 09/24/19 17:52 1,000 MLS/HR Allergies Allergies Allergies Coded Allergies Type Severity Reaction Last Updated Verified nitrofurantoin Allergy Severe sob/anxiety 09/24/19 Yes Physical Exam Physical Exam Constitutional: Well developed, well nourished, no acute distress, non-toxic appearance. [] HENT: Normocephalic, atraumatic, bilateral external ears normal, oropharynx dry, no oral exudates, nose normal. [] Eyes: PERRLA, EOMI, conjunctiva normal, no discharge. [] Neck: Normal range of motion, no tenderness, supple, no stridor. [] Cardiovascular:Heart rate regular rhythm, no murmur [] Lungs & Thorax: Bilateral breath sounds clear to auscultation [] Abdomen: Bowel sounds normal, soft, no tenderness, no masses, no pulsatile masses. [] Skin: Warm, dry, no erythema, no rash. [] Back: No tenderness, no CVA tenderness. [] Extremities: No tenderness, no cyanosis, no clubbing, ROM intact, no edema. [] Neurologic: Alert and oriented X 3, normal motor function, normal sensory function, no focal deficits noted. [] Psychologic: Affect normal, judgement normal, mood normal. [] Current Patient Data Vital Signs Vital Signs Date Time Temp Pulse Resp B/P (MAP) Pulse Ox O2 Delivery O2 Flow Rate FiO2 09/24/19 17:56 99.1 83 18 105/72 (83) 97 Room Air Lab Results Laboratory Tests Test 09/24/19 17:00 09/24/19 17:50 Influenza Type A (Rapid) Negative (NEGATIVE) Influenza Type B (Rapid) Negative (NEGATIVE) Sodium Level 140 mmol/L (136-145) Potassium Level 3.8 mmol/L (3.5-5.1) Chloride Level 104 mmol/L (98-107) Carbon Dioxide Level 28 mmol/L (21-32) Anion Gap 8 (6-14) Blood Urea Nitrogen 7 mg/dL (7-20) Creatinine 0.8 mg/dL (0.6-1.0) Estimated GFR (Cockcroft-Gault) 77.2 BUN/Creatinine Ratio 9 (6-20) Glucose Level 103 mg/dL (70-99) H Calcium Level 8.8 mg/dL (8.5-10.1) Total Bilirubin 0.4 mg/dL (0.2-1.0) Aspartate Amino Transferase (AST) 17 U/L (15-37) Alanine Aminotransferase (ALT) 19 U/L (14-59) Alkaline Phosphatase 87 U/L (46-116) Total Protein 7.0 g/dL (6.4-8.2) Albumin 3.6 g/dL (3.4-5.0) Albumin/Globulin Ratio 1.1 (1.0-1.7) EKG EKG [] Radiology/Procedures Radiology/Procedures [] Course & Med Decision Making Course & Med Decision Making Pertinent Labs and Imaging studies reviewed. (See chart for details) []For sexual female presenting with nausea vomiting diarrhea likely viral etiology check labs check. Give IV fluids and symptomatically treatment patient was improving. Vitals are reassuring abdomen exudate exam is benign patient felt better after treatment in the emergency room and was discharged in stable condition Dragon Disclaimer Dragon Disclaimer This electronic medical record was generated, in whole or in part, using a voice recognition dictation system. Departure Departure: Impression: Primary Impression: Nausea vomiting and diarrhea Disposition: HOME, SELF-CARE Condition: STABLE Referrals: ANYI DONAHUE (PCP) Scripts Ondansetron (ONDANSETRON ODT) 4 Mg Tab.rapdis 1 TAB PO PRN Q6-8HRS PRN for NAUSEA/VOMITING, #16 TAB Prov: JACK DORMAN MD 09/24/19 JACK DORMAN MD Sep 24, 2019 18:34
[2019-09-24] MEDS ORDERED: ONDA4TAB12 PO (18:42)
[2019-09-24 18:58] VITALS: BP 94/54
== END 2019-09-24 18:59 | disposition home or self-care (01) ==
LOC: ER 16:50
DX: R11.2 Nausea with vomiting, unspecified (principal); R19.7 Diarrhea, unspecified; F17.210 Nicotine dependence, cigarettes, uncomplicated; Z88.8 Allergy status to other drugs, medicaments and biological substances
CPT/HCPCS: 36415; 80053; 87804; 96361; 96374; 96375; 99284; J1885; J2405; J7030

== ENCOUNTER → 2019-12-30 | Outpatient (CLI) | payer OTHER ==
[~2019-12-30] MED LIST changes: +LEVO500T59 PO; +ONDA4TAB12 PO; +PHEN-318 PO
== END | disposition home or self-care (01) ==
LOC: LAB 10:56
PROVIDERS: ATTEND Internal Medicine Cardiovascular Disease
DX: J06.0 Acute laryngopharyngitis (principal); J98.8 Other specified respiratory disorders; Z20.828 Contact with and (suspected) exposure to other viral communicable diseases
CPT/HCPCS: 87635

== ENCOUNTER → 2019-12-31 | Outpatient (CLI) | payer OTHER | END | disposition home or self-care (01) | LOC: LAB 11:30 | PROVIDERS: ATTEND Internal Medicine Cardiovascular Disease | DX: J02.9 Acute pharyngitis, unspecified (principal); J98.9 Respiratory disorder, unspecified; Z20.828 Contact with and (suspected) exposure to other viral communicable diseases | CPT/HCPCS: 87635 ==

== ENCOUNTER → 2020-01-11 | Outpatient (CLI) | payer OTHER ==
[~2020-01-11] MED LIST changes: -LEVO500T59 PO; -PHEN-318 PO
--- NOTE | 2020-01-11 15:40 | RAD ---
PA and lateral chest x-ray without comparison for shortness of air. FINDINGS: The lungs are mildly hyperinflated. No pneumonic infiltrates are identified. There is a small hiatal hernia. No pneumothorax or pleural effusion. Cardiomediastinum is grossly unremarkable. No osseous abnormalities. IMPRESSION: 1. Mild hyperinflation with no acute cardiopulmonary abnormality. 2. Small hiatal hernia. Electronically signed by: Tayo Garcia MD (01/11/2020 3:37 PM) [id number]
== END | disposition home or self-care (01) ==
LOC: RAD 14:39
PROVIDERS: ATTEND Internal Medicine
DX: K44.9 Diaphragmatic hernia without obstruction or gangrene (principal)
CPT/HCPCS: 71046

== ENCOUNTER → 2020-01-11 | Outpatient (CLI) | payer OTHER ==
[2020-01-11 15:29] LABS: BASO # 0.2 x10^3/uL (0.0-0.2); BASO % 2 % (0-3); EOS # 0.4 x10^3/uL (0.0-0.7); EOS % 5 % (0-3); HEMATOCRIT 45.5 % (36.0-47.0); LYMPH # 3.3 x10^3/uL (1.0-4.8); LYMPH % 41 % (24-48); MEAN CORPUSCULAR HEMOGLOBIN 31 pg (25-35); MEAN CORPUSCULAR HGB CONC 33 g/dL (31-37); MEAN CORPUSCULAR VOLUME 93 fL (79-100); MONO # 0.6 x10^3/uL (0.0-1.1); MONO % 7 % (0-9); NEUT # 3.7 x10^3uL (1.8-7.7); NEUT % 45 % (31-73); PLATELET COUNT 283 x10^3/uL (140-400); RED BLOOD COUNT 4.91 x10^6/uL (3.50-5.40); RED CELL DISTRIBUTION WIDTH 13.9 % (11.5-14.5); WHITE BLOOD COUNT 8.2 x10^3/uL (4.0-11.0)
[2020-01-11 16:19] LABS: ALBUMIN/GLOBULIN RATIO 1.2 (1.0-1.7); ALK PHOS 81 U/L (46-116); ALT (SGPT) 21 U/L (14-59); ANION GAP 9 (6-14); AST (SGOT) 19 U/L (15-37); BLOOD UREA NITROGEN 8 mg/dL (7-20); BUN/CREATININE RATIO 10 (6-20); CALCIUM 9.4 mg/dL (8.5-10.1); CARBON DIOXIDE 27 mmol/L (21-32); CHLORIDE 103 mmol/L (98-107); CREATININE 0.8 mg/dL (0.6-1.0); GFR 76.9; GLUCOSE 88 mg/dL (70-99); POTASSIUM 3.5 mmol/L (3.5-5.1); SODIUM 139 mmol/L (136-145); TOTAL PROTEIN 7.4 g/dL (6.4-8.2)
[2020-01-11 16:25] LABS: TOTAL BILIRUBIN < 0.1 mg/dL (0.2-1.0)
[2020-01-12 06:07] LABS: FSH 121.7 mIU/mL (.); LUTEINIZING HORMONE 59.8 mIU/mL (.)
== END | disposition home or self-care (01) ==
LOC: LAB 14:47
PROVIDERS: ATTEND Internal Medicine
DX: R53.83 Other fatigue (principal)
CPT/HCPCS: 36415; 80053; 83001; 83002; 84443; 85025

== ENCOUNTER → 2020-02-01 | Outpatient (CLI) | payer OTHER ==
[~2020-02-01] MED LIST changes: +LEVO500T59 PO; +PHEN-318 PO
[2020-02-01 15:18] LABS: BILIRUBIN,URINE NEG (NEG); CLARITY,URINE CLEAR; COLOR,URINE YELLOW; GLUCOSE,URINE NEG (NEG)
[2020-02-01 15:19] LABS: NITRITE,URINE NEG (NEG); UROBILINOGEN,URINE 0.2 mg/dL (0.2 mg/dL)
[2020-02-01 15:24] LABS: BACTERIA,URINE FEW /HPF (0-FEW); SQUAMOUS EPITHELIAL CELL,UR OCC /LPF; WBC,URINE 0 /HPF (0-4)
[2020-02-01 15:25] LABS: AMORPHOUS SEDIMENT,UR PRESENT /HPF
== END | disposition home or self-care (01) ==
LOC: LAB 13:57
PROVIDERS: ATTEND Internal Medicine
DX: N39.0 Urinary tract infection, site not specified (principal)
CPT/HCPCS: 81001

== ENCOUNTER 2020-02-02 06:51 | Emergency (ER) | payer OTHER ==
[~2020-02-02] VITALS: Ht 165.1 cm; Wt 63.8 kg
[2020-02-02 06:51] VITALS: BP 136/70
[~2020-02-02 06:51] MED LIST changes: -LEVO500T59 PO; -PHEN-318 PO
[2020-02-02] MEDS ORDERED: levoFLOXacin 500 MG TABLET PO ONE (07:15)
[2020-02-02] MEDS ORDERED: PHENAZOPYRIDINE 200 MG TABLET. PO ONE (07:15)
[2020-02-02] MEDS ORDERED: LEVO500T59 PO (07:19)
[2020-02-02] MEDS ORDERED: PHEN-318 PO (07:19)
--- NOTE | 2020-02-02 07:20 | PHYS DOC ---
Past History Past Medical History: No Pertinent History Past Surgical History: Hysterectomy, Oophorectomy, Tonsillectomy Smoking: Cigarettes Alcohol Use: None Drug Use: None General Adult EDM: Chief Complaint: PAIN ON URINATION HPI: HPI: Patient is a 49-year-old female who presents with a couple day history of pain with urination, urinary frequency and urgency. She denies any gross hematuria. She denies any fever chills or sweats. She denies any nausea or vomiting. She says it feels like a urinary tract infection. She also complains of a mild headache. [] Review of Systems: Review of Systems: Constitutional: Denies fever or chills Eyes: Denies change in visual acuity HENT: Denies nasal congestion or sore throat Respiratory: Denies cough or shortness of breath Cardiovascular: Denies chest pain or edema GI: Denies abdominal pain, nausea, vomiting, bloody stools or diarrhea :Per HPI Musculoskeletal: Denies back pain or joint pain Integument: Denies rash Neurologic: Denies headache, focal weakness or sensory changes Endocrine: Denies polyuria or polydipsia Lymphatic: Denies swollen glands Psychiatric: Denies depression or anxiety Heart Score: Risk Factors: Risk Factors: DM, Current or recent (<one month) smoker, HTN, HLP, family history of CAD, obesity. Risk Scores: Score 0 - 3: 2.5% MACE over next 6 weeks - Discharge Home Score 4 - 6: 20.3% MACE over next 6 weeks - Admit for Clinical Observation Score 7 - 10: 72.7% MACE over next 6 weeks - Early Invasive Strategies Current Medications: Current Meds: Current Medications Medications (Trade) Dose Ordered Sig/Nahun Start Time Stop Time Status Last Admin Dose Admin Levofloxacin (Levaquin) 500 mg 1X ONCE 02/02/20 07:15 02/02/20 07:16 UNV Phenazopyridine HCl (Pyridium) 200 mg 1X ONCE 02/02/20 07:15 02/02/20 07:16 UNV Allergies: Allergies: Allergies Coded Allergies Type Severity Reaction Last Updated Verified nitrofurantoin Allergy Severe sob/anxiety 09/24/19 Yes Physical Exam: PE: Constitutional: Well developed, well nourished, no acute distress, non-toxic appearance. [] [] Eyes: PERRLA, EOMI, conjunctiva normal, no discharge. [] Neck: Normal range of motion, no tenderness, supple, no stridor. [] Cardiovascular:Heart rate regular rhythm, no murmur [] Lungs & Thorax: Bilateral breath sounds clear to auscultation [] Abdomen: Bowel sounds normal, soft, no tenderness, no masses, no pulsatile masses. [] Extremities: No tenderness, no cyanosis, no clubbing, ROM intact, no edema. [] Neurologic: Alert and oriented X 3, normal motor function, normal sensory function, no focal deficits noted. [] Psychologic: Anxious l. [] EKG: EKG: [] Radiology/Procedures: Radiology/Procedures: [] Course & Med Decision Making: Course & Med Decision Making Pertinent Labs and Imaging studies reviewed. (See chart for details) [] Dragon Disclaimer: Dragon Disclaimer: This electronic medical record was generated, in whole or in part, using a voice recognition dictation system. Departure Departure: Impression: Primary Impression: Dysuria Disposition: 01 HOME/RESIDENCE PRIOR TO ADM Condition: STABLE Referrals: ANYI DONAHUE (PCP) Patient Instructions: Dysuria Scripts Phenazopyridine Hcl (PYRIDIUM) 200 Mg Tablet 200 MG PO Q8HRS for urinary tract infection, #10 CAP Prov: MILAGROS NIELSEN DO 02/02/20 Levofloxacin (LEVAQUIN) 500 Mg Tablet 500 MG PO QD for UTI, #5 TAB Prov: MILAGROS NIELSEN DO 02/02/20 MILAGROS NIELSEN DO February 02, 2020 07:19
== END 2020-02-02 07:32 | disposition home or self-care (01) ==
LOC: ER 06:51
DX: R30.0 Dysuria (principal); R35.0 Frequency of micturition; R39.15 Urgency of urination; R51 Headache; F17.210 Nicotine dependence, cigarettes, uncomplicated; Z90.710 Acquired absence of both cervix and uterus; Z90.722 Acquired absence of ovaries, bilateral; Z88.8 Allergy status to other drugs, medicaments and biological substances
CPT/HCPCS: 93005; 99283

== ENCOUNTER → 2020-04-03 | Outpatient (CLI) | payer OTHER ==
[~2020-04-03] MED LIST changes: +LEVO500T59 PO; +PHEN-318 PO
== END ==
LOC: LAB 14:40
PROVIDERS: ATTEND Internal Medicine Cardiovascular Disease
DX: Z20.828 Contact with and (suspected) exposure to other viral communicable diseases (principal)
CPT/HCPCS: 36415; U0003-CS

== ENCOUNTER → 2020-04-08 | Outpatient (CLI) | payer OTHER | LOC: LAB 12:10 | PROVIDERS: ATTEND Internal Medicine Cardiovascular Disease | DX: Z20.828 Contact with and (suspected) exposure to other viral communicable diseases (principal) | CPT/HCPCS: 36415; U0003 ==

== ENCOUNTER → 2020-04-14 | Outpatient (CLI) | payer OTHER | END | disposition home or self-care (01) | LOC: LAB 19:24 | PROVIDERS: ATTEND Internal Medicine Cardiovascular Disease | DX: Z20.828 Contact with and (suspected) exposure to other viral communicable diseases (principal) | CPT/HCPCS: C9803; U0003; 36415 ==

== ENCOUNTER → 2020-05-22 | Outpatient (CLI) | payer OTHER | END | disposition home or self-care (01) | LOC: LAB 09:27 | PROVIDERS: ATTEND Internal Medicine Cardiovascular Disease | DX: Z20.828 Contact with and (suspected) exposure to other viral communicable diseases (principal) | CPT/HCPCS: U0003-CS ==

== ENCOUNTER → 2020-06-03 | Outpatient (CLI) | payer OTHER | END | disposition home or self-care (01) | LOC: LAB 13:05 | PROVIDERS: ATTEND Internal Medicine Cardiovascular Disease | DX: Z20.828 Contact with and (suspected) exposure to other viral communicable diseases (principal) | CPT/HCPCS: U0003-CS ==

== ENCOUNTER → 2020-06-17 | Outpatient (CLI) | payer OTHER | END | disposition home or self-care (01) | LOC: LAB 12:41 | PROVIDERS: ATTEND Internal Medicine Cardiovascular Disease | DX: R06.02 Shortness of breath (principal); Z20.828 Contact with and (suspected) exposure to other viral communicable diseases | CPT/HCPCS: U0003-CS ==

== ENCOUNTER → 2020-07-31 | Outpatient (CLI) | payer OTHER | LOC: LAB 15:09 | PROVIDERS: ATTEND Internal Medicine Cardiovascular Disease | DX: Z20.828 Contact with and (suspected) exposure to other viral communicable diseases (principal) | CPT/HCPCS: U0003 ==

== ENCOUNTER → 2020-08-17 | Outpatient (CLI) | payer OTHER | LOC: LAB 17:20 | PROVIDERS: ATTEND Internal Medicine Cardiovascular Disease | DX: Z20.828 Contact with and (suspected) exposure to other viral communicable diseases (principal) | CPT/HCPCS: U0003 ==

== ENCOUNTER 2020-08-25 06:47 | Emergency (ER) | payer OTHER ==
[~2020-08-25] VITALS: Ht 165.1 cm; Wt 67.2 kg
--- NOTE | 2020-08-25 07:17 | PHYS DOC ---
Past History Past Medical History: COPD, Hypothyroid, UTI Past Surgical History: Hysterectomy, Oophorectomy, Tonsillectomy Smoking: Cigarettes Alcohol Use: None Drug Use: None General Adult EDM: Chief Complaint: SORE THROAT HPI: HPI: Patient is a 49-year-old female who arrives with chief complaint of sore throat. Patient has been sick for 2 to 3 days. Has had congestion with the lack of taste/smell and a sore throat. Patient had a cough and some mild shortness of breath which is chronic. Patient has had known COVID-19 exposure last week. Patient denies any nausea vomiting diarrhea. Patient denies any significant pain at this time. Review of Systems: Review of Systems: Constitutional: Denies fever or chills Eyes: Denies change in visual acuity HENT: Planes of congestion and sore throat Respiratory: Complains of cough and some shortness of breath Cardiovascular: Denies chest pain or edema GI: Denies abdominal pain, nausea, vomiting, bloody stools or diarrhea : Denies dysuria Musculoskeletal: Denies back pain or joint pain Integument: Denies rash Neurologic: Denies headache, focal weakness or sensory changes Endocrine: Denies polyuria or polydipsia Lymphatic: Denies swollen glands Psychiatric: Denies depression or anxiety Current Medications: Current Meds: Active Scripts Active Pyridium (Phenazopyridine Hcl) 200 Mg Tablet 200 Mg PO Q8HRS Levaquin (Levofloxacin) 500 Mg Tablet 500 Mg PO QD Ondansetron Odt (Ondansetron) 4 Mg Tab.rapdis 1 Tab PO PRN Q6-8HRS PRN Atrovent Hfa (Ipratropium Union) 12.9 Gm Hfa.aer.ad 2 Puff IH QID PRN Prednisone 10 Mg Tablet 50 Mg PO DAILY 3 Days Azithromycin Tablet (Azithromycin) 250 Mg Tablet 1 Pkg PO UD Prednisone 20 Mg Tablet 1 Tab PO BID Naproxen 500 Mg Tablet.dr 1 Tab PO Q12HR PRN Diazepam 5 Mg Tablet 5 Mg PO BID PRN Reported Xanax (Alprazolam) 0.5 Mg Tablet 1 Tab PO DAILY PRN Allergies: Allergies: Allergies Coded Allergies Type Severity Reaction Last Updated Verified nitrofurantoin Allergy Severe sob/anxiety 09/24/19 Yes Physical Exam: PE: Constitutional: Well developed, well nourished, no acute distress, non-toxic appearance. [] HENT: Normocephalic, atraumatic, bilateral external ears normal, mild pharyngeal erythema without tonsillar exudate or abscess nose normal. [] Eyes: PERRLA, EOMI, conjunctiva normal, no discharge. [] Neck: Normal range of motion, no tenderness, supple, no stridor. [] No meningeal signs Cardiovascular:Heart rate regular rhythm, peripheral pulses are intact cap refill is brisk Lungs & Thorax: Bilateral breath sounds clear, no respiratory distress Abdomen: Soft nondistended Skin: Warm, dry, no erythema, no rash. [] Back: No tenderness, no CVA tenderness. [] Extremities: No tenderness, no cyanosis, no clubbing, ROM intact, no edema. [] Neurologic: Alert and oriented X 3, normal motor function, normal sensory function, no focal deficits noted. [] Psychologic: Affect normal, judgement normal, mood normal. [] Current Patient Data: Labs: Laboratory Tests Test 08/25/20 07:30 Group A Streptococcus Rapid Negative Vital Signs: Vital Signs Date Time Temp Pulse Resp B/P (MAP) Pulse Ox O2 Delivery O2 Flow Rate FiO2 08/25/20 08:05 72 18 113/70 (84) 96 Room Air 08/25/20 07:15 97.9 EKG: EKG: [] Radiology/Procedures: Radiology/Procedures: [] Heart Score: Risk Factors: Risk Factors: DM, Current or recent (<one month) smoker, HTN, HLP, family history of CAD, obesity. Risk Scores: Score 0 - 3: 2.5% MACE over next 6 weeks - Discharge Home Score 4 - 6: 20.3% MACE over next 6 weeks - Admit for Clinical Observation Score 7 - 10: 72.7% MACE over next 6 weeks - Early Invasive Strategies Course & Med Decision Making: Course & Med Decision Making Pertinent Labs and Imaging studies reviewed. (See chart for details) [] 49 female presents with symptoms consistent with COVID-19. Patient is nontoxic has no increased work of breathing. Patient told to isolate till results come back. Fabian Disclaimer: Fabian Disclaimer: This electronic medical record was generated, in whole or in part, using a voice recognition dictation system. Departure Departure: Impression: Primary Impression: Upper respiratory infection Additional Impression: Suspected COVID-19 virus infection Disposition: 01 DC HOME SELF CARE/HOMELESS Referrals: ANYI DONAHUE (PCP) 2-3 DAYS Patient Instructions: Upper Respiratory Infection, Adult Additional Instructions: You have been tested for or diagnosed with COVID-19. It is an infection caused by a new type of coronavirus. COVID-19 will cause cold-like or mild flu symptoms in most. It can cause more severe symptoms like problems breathing in some. There is no treatment for COVID-19. The body will clear the infection over time. Self-care will help to ease discomfort. Steps to Take: Self-Care Rest as needed. Healthy habits may help you feel better. Steps include: Choose healthy foods including fruits and vegetables. Drink water throughout the day. Get plenty of sleep each night. If you smoke, try to quit. It may ease breathing. Avoid alcohol. Keep Others Healthy The virus can spread to others. Droplets are released every time you sneeze or cough. The droplets can get into the mouth, nose, or eyes of people near you and lead to infection. To lower the chances of spreading COVID-19 to others: Stay at home until your doctor has said it is safe to leave. If you tested positive this will mean staying isolated until both of the following are true: At least 7 days have passed since the start of illness. You are free of fever for at least 72 hours without the use of medicine. During this time: - Avoid public areas, events, or transportation. Do not return to work or school until your doctor has said it is safe to do so. - Call ahead if you need to go to a medical center. Let them know you may have COVID-19. It will help them guide you where to go. They may also ask you to wear a facemask when you come to the office. - If you call for emergency medical services, let them know you may have COVID- 19. While at home: - Try to avoid close contact with others. Stay about 6 feet away. - If possible, spend most of your time in a separate room from others. - Use a face mask if you will be in close contact with others such as sharing a room or vehicle. - Have someone wipe down common surfaces in the home. Use household food service lead every day on areas like doorknobs, counters, or sinks. - Cough or sneeze into a tissue. Throw the tissue away right after use. If a tissue is not available, cough or sneeze into your elbow. - Wash your hands often. Wash them after sneezing or coughing. Use soap and christina er and wash for at least 20 seconds. Alcohol based hand venetian blind cleaner can be used if soap and water is not available. - Do not prepare food for others. Avoid sharing personal items like forks, spoons, or toothbrushes. - Avoid close contact with pets while you are sick. There is no evidence of the virus passing to pets. This is a safety step until more is known about this virus. Isolation can be frustrating. Social interaction can help. Keep in touch with friends and family through phone and tech options. You can still interact with others in your home, just keep a safe distance of about 6 feet. Follow-up: Your doctors office will check in with you to see if there are any changes in your health. You may be asked to keep track of symptoms to share with them. They will also let you know when you are clear to be in public again. Problems to Look Out For: Contact your doctor if your recovery is not going as you expect. Get emergency care if you have problems such as: - Trouble breathing - Nonstop chest pain or pressure - Changes in awareness, confusion, or problems waking - Lips or face have bluish color - Worsening of symptoms If you think you have an emergency, call for emergency medical services right away. As taken from [facility] EMERGENCY DEPARTMENT GENERAL DISCHARGE INSTRUCTIONS THANK YOU for coming to [facility] Emergency Department (ED) today and trusting us with your care. We trust that you had a positive experience in our Emergency Department. If you wish to speak to the department Management you can contact the emergency department at YOUR FOLLOW UP INSTRUCTIONS ARE FOLLOWS: Do you have a private doctor? If you do not have a private doctor, please ask for a resource list of physicians or clinics that may be able to assist you with follow up care. The Emergency Physician has interpreted your x-rays. The X-ray specialist will also review them. If there is a change in the findings you will be notified in 48 hours when at all possible. A lab test or lab culture may have been done, your results will be reviewed and you will be notified if you need a change in treatment. ADDITIONAL INSTRUCTIONS AND INFORMATION Your care today has been supervised by a physician who is specially trained in emergency care. Many problems require more than one evaluation for a complete diagnosis and treatment. We recommend that you schedule your follow up appointment as recommended to ensure complete treatment of your illness or injury. If you are unable to obtain follow up care and continue to have a problem, or if your condition worsens we recommend that you return to the ED. We are not able to safely determine your condition over the phone nor are we able to give sound medical advice over the phone. For these safety reasons, if you call for medical advice we will ask you to come to the ED for further evaluation If you have any questions regarding these discharge instructions please call the ED at SAFETY INFORMATION In the interest of safety, wellness, and injury prevention; we encourage you to wear your seatbelt, if you smoke; quit smoking, and we encourage your family to use protective helmet for bicycling and other sporting events that present an increased risk for head injury. IF YOUR SYMPTOMS WORSEN OR NEW SYMPTOMS DEVELOP, OR YOU HAVE CONCERNS ABOUT YOUR CONDITION; OR IF YOUR CONDITION WORSENS WHILE YOU ARE WAITING FOR YOUR FOLLOW UP APPOINTMENT; EITHER CONTACT YOUR PRIMARY CARE DOCTOR, THE PHYSICIAN WHOSE NAME AND NUMBER YOU WERE GIVEN, OR RETURN TO THE ED IMMEDIATELY. PERFECTO BLUM MD Aug 25, 2020 07:17
[2020-08-25 08:05] VITALS: BP 113/70
== END 2020-08-25 08:05 | disposition home or self-care (01) ==
LOC: ER 06:47
DX: J06.9 Acute upper respiratory infection, unspecified (principal); J44.9 Chronic obstructive pulmonary disease, unspecified; E03.9 Hypothyroidism, unspecified; F17.210 Nicotine dependence, cigarettes, uncomplicated; Z20.828 Contact with and (suspected) exposure to other viral communicable diseases; Z87.440 Personal history of urinary (tract) infections; Z88.8 Allergy status to other drugs, medicaments and biological substances
CPT/HCPCS: 87070; 87880; 99283; C9803; U0003

== ENCOUNTER 2020-10-21 13:23 | Emergency (ER) | payer OTHER ==
[~2020-10-21] VITALS: Ht 165.1 cm; Wt 67.2 kg
[~2020-10-21 13:23] MED LIST changes: -ONDA4TAB7 PO
[2020-10-21] MEDS ORDERED: ONDANSETRON PF 4 MG/2 ML VIAL. ONE (13:56)
[2020-10-21] MEDS ORDERED: ONDANSETRON PF 4 MG/2 ML VIAL. IVP ONE (14:00)
[2020-10-21] MEDS ORDERED: IV NORMAL SALINE 1,000ML 1,000 ML IV ONE (14:00)
--- NOTE | 2020-10-21 14:01 | PHYS DOC ---
Past History Past Medical History: Asthma, COPD Past Surgical History: Hysterectomy, Oophorectomy Smoking: Cigarettes Alcohol Use: None Drug Use: None General Adult EDM: Chief Complaint: NAUSEA/VOMITING/DIARRHEA HPI: HPI: 49-year-old female presenting the emergency department today with nausea and vomiting fatigue and malaise after getting the second Covid vaccine last week. She started feeling bad on Tuesday of last week and has been taking Tylenol and ibuprofen for fever. She does not have a cough. She feels nauseous and is having hard time keeping fluids down. She denies abdominal pain. She denies rash. She denies recent exposure to COVID-19. Review of systems is negative for chest pain shortness of breath cough. Negative for nuchal rigidity or rash. All other review of systems negative. ED course: 49-year-old female presenting with nausea vomiting and malaise after Covid vaccine. Vital signs unremarkable. Work-up here is unremarkable. She was given fluids and nausea medication. On reexamination she is feeling better. We will discharge and have her follow-up with her PCP tomorrow. The patient has been examined and was not found to have an emergency medical condition. The patient was then discharged home in stable condition to follow up with their primary care physician over the next 1-2 days. They were to return if their symptoms worsened or if they were concerned for any reason. They were also instructed to return to the emergency department if they were unable to get the recommended and appropriate follow-up. [id number] discharge instructions and return precautions were given. Patient's questions were answered to their satisfaction. Patient is comfortable with plan. Current Medications: Current Meds: Current Medications Medications (Trade) Dose Ordered Sig/Nahun Start Time Stop Time Status Last Admin Dose Admin Ondansetron HCl (Zofran) 4 mg 1X ONCE 10/21/20 14:00 10/21/20 14:01 UNV Sodium Chloride 1,000 ml @ 1,000 mls/hr 1X ONCE 10/21/20 14:00 10/21/20 14:59 UNV Allergies: Allergies: Allergies Coded Allergies Type Severity Reaction Last Updated Verified nitrofurantoin Allergy Severe sob/anxiety 10/21/20 Yes Physical Exam: PE: Constitutional: Well developed, well nourished, no acute distress, non-toxic appearance. [] HENT: Normocephalic, atraumatic, bilateral external ears normal, oropharynx moist, no oral exudates, nose normal. [] Eyes: PERRLA, EOMI, conjunctiva normal, no discharge. [] Neck: Normal range of motion, no tenderness, supple, no stridor. [] Cardiovascular:Heart rate regular rhythm, no murmur [] Lungs & Thorax: Bilateral breath sounds clear to auscultation [] Abdomen: Bowel sounds normal, soft, no tenderness, no masses, no pulsatile masses. No rebound tenderness or guarding. Negative McBurney's point. Negative Carrington sign. Skin: Warm, dry, no erythema, no rash. [] Back: No tenderness, no CVA tenderness. [] Extremities: No tenderness, no cyanosis, no clubbing, ROM intact, no edema. [] Neurologic: Alert and oriented X 3, normal motor function, normal sensory function, no focal deficits noted. [] Psychologic: Affect normal, judgement normal, mood normal. [] Current Patient Data: Vital Signs: Vital Signs Date Time Temp Pulse Resp B/P (MAP) Pulse Ox O2 Delivery O2 Flow Rate FiO2 10/21/20 13:37 97.6 63 16 119/64 (82) 98 EKG: EKG: [] Radiology/Procedures: Radiology/Procedures: [] Heart Score: Risk Factors: Risk Factors: DM, Current or recent (<one month) smoker, HTN, HLP, family history of CAD, obesity. Risk Scores: Score 0 - 3: 2.5% MACE over next 6 weeks - Discharge Home Score 4 - 6: 20.3% MACE over next 6 weeks - Admit for Clinical Observation Score 7 - 10: 72.7% MACE over next 6 weeks - Early Invasive Strategies Course & Med Decision Making: Course & Med Decision Making Pertinent Labs and Imaging studies reviewed. (See chart for details) [] Dragon Disclaimer: Dragon Disclaimer: This electronic medical record was generated, in whole or in part, using a voice recognition dictation system. Departure Departure: Impression: Primary Impression: Adverse reaction to vaccine Disposition: 01 DC HOME SELF CARE/HOMELESS Condition: STABLE Referrals: ANYI DONAHUE (PCP) Patient Instructions: Medical Screening Exam Additional Instructions: EMERGENCY DEPARTMENT GENERAL DISCHARGE INSTRUCTIONS Follow-up with your primary physician in 1 to 2 days. Return to the emergency department if you have any new or concerning findings. Thank you for coming to [facility] emergency department today and trusting us with you care. We trust that you had a positive experience in our Emergency Department. If you wish to speak to the department management, you may call the Director at [phone]. YOUR FOLLOW UP INSTRUCTIONS ARE FOLLOWS: 1. Do you have a private Doctor? If you do not have a private doctor, please ask for a resource list of physicians or clinics that may be able to assist you with follow up care. 2. If a lab test or culture has been done and does not come back immediately, your results will be reviewed and you will be notified if you need a change in treatment. ADDITIONAL INSTRUCTIONS AND INFORMATION: 1. Your care today has been supervised by a physician who is specially trained in emergency care. Many problems require more than one evaluation for a complete diagnosis and treatment. We recommend that you schedule your follow up appointment as recommended to ensure complete treatment of you illness or injury. If you are unable to obtain follow up care and continue to have a problem, or if your condition worsens, we recommend that you return to the ED. 2. We are not able to safely determine your condition over the phone nor are we able to give sound medical advice over the phone. For these safety reasons, if you call for medical advice we will ask you to come to the ED for further evaluation. 3. If you have any questions regarding these discharge instructions please call the ED at [phone]. SAFETY INFORMATION: In the interest of safety, wellness, and injury prevention; we encourage you to wear your sealbelt, if you smoke; quite smoking, and we encourage family to use a protective helmet for bicycling and other sporting events that present an increased risk for head injury. IF YOUR SYMPTOMS WORSEN OR NEW SYMPTOMS DEVELOP, OR YOU HAVE CONCERNS ABOUT YOUR CONDITION; OR IF YOUR CONDITION WORSENS WHILE YOU ARE WAITING FOR YOUR FOLLOW UP APPOINTMENT; EITHER CONTACT YOUR PRIMARY CARE DOCTOR, THE PHYSICIAN WHOSE NAME AND NUMBER YOU WERE GIVEN, OR RETURN TO THE ED IMMEDIATELY. This condition should be evaluated by your primary care physician and any necessary consulting services for continued management within a few days (1-2) after discharge. Return to the emergency department if you have any new or concerning symptoms including but not limited to fever, chills, nausea, vomiting, intractable pain, any new rashes, chest pain, shortness of breath, uncontrolled bleeding, difficulty breathing, and/or vision loss. Scripts Ondansetron Hcl (ZOFRAN) 4 Mg Tablet 1 TAB PO PRN Q6HRS PRN for NAUSEA, #6 TAB Prov: KATIE MONTAÑO MD 10/21/20 KATIE MONTAÑO MD Oct 21, 2020 14:01
[2020-10-21 14:43] LABS: BASO # 0.1 x10^3/uL (0.0-0.2); BASO % 1 % (0-3); EOS # 0.3 x10^3/uL (0.0-0.7); EOS % 4 % (0-3); HEMATOCRIT 47.1 % (36.0-47.0); HEMOGLOBIN 15.3 g/dL (12.0-15.5); LYMPH # 2.6 x10^3/uL (1.0-4.8); LYMPH % 37 % (24-48); MEAN CORPUSCULAR HEMOGLOBIN 30 pg (25-35); MEAN CORPUSCULAR HGB CONC 32 g/dL (31-37); MEAN CORPUSCULAR VOLUME 93 fL (79-100); MONO # 0.5 x10^3/uL (0.0-1.1); MONO % 8 % (0-9); NEUT # 3.7 x10^3uL (1.8-7.7); NEUT % 51 % (31-73); PLATELET COUNT 288 x10^3/uL (140-400); RED BLOOD COUNT 5.05 x10^6/uL (3.50-5.40); RED CELL DISTRIBUTION WIDTH 13.2 % (11.5-14.5); WHITE BLOOD COUNT 7.2 x10^3/uL (4.0-11.0)
[2020-10-21 14:56] LABS: CREATININE 0.9 mg/dL (0.6-1.0); GFR 67.1; POTASSIUM 3.9 mmol/L (3.5-5.1)
[2020-10-21 15:09] LABS: ALBUMIN 3.8 g/dL (3.4-5.0); DIRECT BILIRUBIN 0.1 mg/dL (0.0-0.2); TOTAL BILIRUBIN 0.2 mg/dL (0.2-1.0); TOTAL PROTEIN 7.8 g/dL (6.4-8.2)
[2020-10-21 15:55] LABS: BACTERIA,URINE 0 /HPF (0-FEW); BILIRUBIN,URINE NEG (NEG); CLARITY,URINE CLEAR; COLOR,URINE YELLOW; GLUCOSE,URINE NEG (NEG); NITRITE,URINE NEG (NEG); RBC,URINE 0 /HPF (0-2); SQUAMOUS EPITHELIAL CELL,UR MANY /LPF; UROBILINOGEN,URINE 0.2 mg/dL (0.2 mg/dL); WBC,URINE 0 /HPF (0-4)
[2020-10-21] MEDS ORDERED: ONDA4TAB7 PO (16:05)
[2020-10-21 17:10] VITALS: BP 107/68
== END 2020-10-21 17:20 | disposition home or self-care (01) ==
LOC: ER 13:23
DX: T88.1XXA Other complications following immunization, not elsewhere classified, initial encounter (principal); R11.2 Nausea with vomiting, unspecified; R53.83 Other fatigue; J44.9 Chronic obstructive pulmonary disease, unspecified; F17.210 Nicotine dependence, cigarettes, uncomplicated; Z88.8 Allergy status to other drugs, medicaments and biological substances
CPT/HCPCS: 36415; 80048; 80076; 81001; 83690; 85025; 96361; 96374; 99283; J2405; J7030

== ENCOUNTER → 2020-10-21 | Outpatient (CLI) | payer OTHER ==
[~2020-10-21] MED LIST changes: +ONDA4TAB7 PO
[2020-10-21 13:37] VITALS: BP 119/64
== END ==
LOC: LAB 15:41
PROVIDERS: ATTEND Internal Medicine Cardiovascular Disease
DX: R11.0 Nausea (principal); R19.7 Diarrhea, unspecified; R06.02 Shortness of breath; Z20.822 Contact with and (suspected) exposure to COVID-19
CPT/HCPCS: U0003

== ENCOUNTER → 2020-12-16 | Outpatient (CLI) | payer OTHER ==
[2020-10-21 13:37] VITALS: BP 119/64
[~2020-12-16] MED LIST changes: +ONDA4TAB7 PO
[2020-12-16 19:27] LABS: BASO # 0.1 x10^3/uL (0.0-0.2); BASO % 1 % (0-3); EOS # 0.3 x10^3/uL (0.0-0.7); EOS % 4 % (0-3); HEMATOCRIT 42.8 % (36.0-47.0); HEMOGLOBIN 14.1 g/dL (12.0-15.5); LYMPH # 2.9 x10^3/uL (1.0-4.8); LYMPH % 37 % (24-48); MEAN CORPUSCULAR HEMOGLOBIN 31 pg (25-35); MEAN CORPUSCULAR HGB CONC 33 g/dL (31-37); MEAN CORPUSCULAR VOLUME 94 fL (79-100); MONO # 0.5 x10^3/uL (0.0-1.1); MONO % 7 % (0-9); NEUT # 3.9 x10^3uL (1.8-7.7); NEUT % 51 % (31-73); PLATELET COUNT 249 x10^3/uL (140-400); RED BLOOD COUNT 4.56 x10^6/uL (3.50-5.40); RED CELL DISTRIBUTION WIDTH 13.8 % (11.5-14.5); WHITE BLOOD COUNT 7.7 x10^3/uL (4.0-11.0)
[2020-12-16 19:35] LABS: ALBUMIN 3.6 g/dL (3.4-5.0); ALBUMIN/GLOBULIN RATIO 1.1 (1.0-1.7); CALCIUM 8.8 mg/dL (8.5-10.1); CREATININE 0.8 mg/dL (0.6-1.0); GFR 76.6; MAGNESIUM 2.1 mg/dL (1.8-2.4); POTASSIUM 3.9 mmol/L (3.5-5.1); TOTAL BILIRUBIN 0.2 mg/dL (0.2-1.0); TOTAL PROTEIN 6.9 g/dL (6.4-8.2)
[2020-12-17 20:12] LABS: FREE T4 0.91 ng/dL (0.76-1.46); THYROID STIM HORMONE (TSH) 2.691 uIU/mL (0.358-3.740)
== END ==
LOC: LAB 17:58
PROVIDERS: ATTEND Family Medicine
DX: N95.0 Postmenopausal bleeding (principal)
CPT/HCPCS: 36415; 80053; 80061; 82306; 82652; 82670; 83735; 84439; 84443; 85025

== ENCOUNTER → 2020-12-31 | Outpatient (CLI) | payer OTHER ==
[2020-10-21 13:37] VITALS: BP 119/64
[~2020-12-31] MED LIST changes: +IOHEXOL 240 MG/ML 50ML VIAL. ONE; +IOHEXOL 240 MG/ML 50ML VIAL. PO ONE; +IOHEXOL 300 MG/ML 75 ML VIAL. IV ONE
--- NOTE | 2020-12-31 11:40 | RAD ---
INDICATION: Screening for osteopenia/osteoporosis. Hysterectomy with increased risk for osteopenia COMPARISON: None. TECHNIQUE: Bone densitometry was performed through the lumbar spine and proximal femur. IMPRESSION: Lumbar Spine: BMD: 1.14 T-Score: -0.3 Range: Normal Proximal Femur: BMD: 0.85 T-Score: -0.9 Range: Lower limits of normal on border with osteopenia World Health Organization Criteria for Bone Density: T-Score: > -1.0: Normal Range < -1.0 to -2.5: Osteopenic Range < -2.5: Osteoporotic Range Electronically signed by: Jesus Chaparro MD (12/31/2020 11:38 AM) [id number]
--- NOTE | 2020-12-31 19:40 | RAD ---
Exam: CT abdomen/pelvis with intravenous contrast Indication: Umbilical hernia Comparison: CT abdomen pelvis 01/18/2019 Technique: Helical CT imaging performed of the abdomen and pelvis after the intravenous administratio n of intravenous contrast. Sagittal and coronal reformats were obtained. One or more of the following individualized dose reduction techniques were utilized for this examinat ion: 1. Automated exposure control 2. Adjustment of the mA and/or kV according to patient size 3. Use of iterative reconstruction technique. Findings: Lower chest: Normal Liver: Liver is normal in size. There are scattered subcentimeter hypodensities, unchanged and too sm all to characterize but likely simple cysts. Gallbladder/Biliary Tree: Normal. Pancreas: Normal. Spleen: Normal. Adrenal Glands: Normal. Kidneys/Ureters/Bladder: Normal. Reproductive Organs: Uterus is surgically absent. No adnexal mass. Stomach, small bowel, and colon: Small to moderate hiatal hernia. No small bowel obstruction. Colon a nd appendix are unremarkable. Vasculature: Abdominal aorta is normal in caliber. Mild calcified aortoiliac atherosclerosis. Lymph Nodes: No lymphadenopathy. Peritoneum and retroperitoneum: No free fluid or free air. Bones: No acute osseous abnormality. Miscellaneous: No abdominal wall or inguinal hernia. Impression: 1. No acute abnormality. 2. Small to moderate hiatal hernia. Electronically signed by: Eliza Edmondson MD (12/31/2020 7:38 PM) [id number]
--- NOTE | 2021-01-02 18:24 | RAD ---
DATE: 12/31/2020 EXAM: MAMMO MANSI SCREENING BILATERAL HISTORY: Screening COMPARISON: None. This is the patient's baseline exam. This study was interpreted with the benefit of Computerized Aided Detection (CAD). Breast Density: SCATTERED The breast parenchyma shows scattered fibroglandular densities. Breast parenchyma level B. FINDINGS: There is a 5 mm circumscribed mass in the right breast at 11:00 6 cm the nipple in the right breast. Additional 4 mm circumscribed mass in the right breast at approximately 12:00 4 cm posterior to the nipple. No suspicious calcification or architectural distortion in either breast. IMPRESSION: 2 circumscribed masses in the upper right breast. Recommend ultrasound further evaluate. BI-RADS CATEGORY: 0 INCOMPLETE: NEEDS ADDITIONAL IMAGING EVALUATION AND/OR PRIOR MAMMOGRAMS FOR COMPARISON. RECOMMENDED FOLLOW-UP: ADD ADDITIONAL IMAGING PQRS compliance statement: Patient information was entered into a reminder system with a target due date for the next mammogram. Mammography is a sensitive method for finding small breast cancers, but it does not detect them all and is not a substitute for careful clinical examination. A negative mammogram does not negate a clinically suspicious finding and should not result in delay in biopsying a clinically suspicious abnormality. "Our facility is accredited by the [employer] Mammography Program."
== END ==
LOC: MAMMO 10:17
PROVIDERS: ATTEND Family Medicine
DX: Z12.31 Encounter for screening mammogram for malignant neoplasm of breast (principal); M85.88 Other specified disorders of bone density and structure, other site; K44.9 Diaphragmatic hernia without obstruction or gangrene; K42.9 Umbilical hernia without obstruction or gangrene; N32.9 Bladder disorder, unspecified; N63.11 Unspecified lump in the right breast, upper outer quadrant; I70.0 Atherosclerosis of aorta; I70.8 Atherosclerosis of other arteries
CPT/HCPCS: 74178; 77063; 77067; 77080; Q9966; Q9967

== ENCOUNTER → 2021-01-19 | Outpatient (CLI) | payer OTHER ==
[2020-10-21 13:37] VITALS: BP 119/64
[~2021-01-19] MED LIST changes: -IOHEXOL 240 MG/ML 50ML VIAL. ONE; -IOHEXOL 240 MG/ML 50ML VIAL. PO ONE; -IOHEXOL 300 MG/ML 75 ML VIAL. IV ONE
--- NOTE | 2021-01-20 08:31 | RAD ---
INDICATION: 50 year-old female presents for further evaluation of an abnormality of the right breast on prior screening mammogram. TECHNIQUE: Targeted high resolution sonography of the region of clinical concern was performed. COMPARISON: None FINDINGS: At the 11:00 position, 6 cm from the nipple there is a hypoechoic mass of slightly irregular margins and internal homogeneous low level echoes with thin internal septation with parallel orientation and is of oval/round shape. There is no internal vascularity on Doppler interrogation. It measures 0.4 x 0.2 x 0.4 cm. 12:00 position, 4 cm from the nipple: An anechoic avascular mass of circumscribed margins and round/o jonah shape is present. It demonstrates posterior acoustic enhancement and a parallel orientation. It m easures 0.3 x 0.5 x 0.3 cm IMPRESSION: Probably benign finding at the 11:00 position, possibly complicated or complex cyst. The 12:00 finding likely represents a simple cyst. RECOMMENDATION: Recommend 6 month ultrasound follow up. BI-RADS 3: Probably Benign Electronically signed by: Ricardo Patel MD (01/20/2021 8:29 AM) [id number]
== END ==
LOC: US 11:37
PROVIDERS: ATTEND Family Medicine
DX: N60.01 Solitary cyst of right breast (principal)
CPT/HCPCS: 76641

== ENCOUNTER → 2021-04-10 | Outpatient (CLI) | payer OTHER ==
[2020-10-21 13:37] VITALS: BP 119/64
== END ==
LOC: LAB 06:15
PROVIDERS: ATTEND Internal Medicine Cardiovascular Disease
DX: Z20.822 Contact with and (suspected) exposure to COVID-19 (principal)
CPT/HCPCS: U0003

== ENCOUNTER → 2021-04-16 | Outpatient (CLI) | payer OTHER ==
[2020-10-21 13:37] VITALS: BP 119/64
[~2021-04-16] MED LIST changes: +IBUP600T16 PO
== END ==
LOC: LAB 08:19
PROVIDERS: ATTEND Internal Medicine Cardiovascular Disease
DX: Z20.822 Contact with and (suspected) exposure to COVID-19 (principal)
CPT/HCPCS: U0005

== ENCOUNTER → 2021-04-23 | Outpatient (CLI) | payer OTHER ==
[2020-10-21 13:37] VITALS: BP 119/64
[~2021-04-23] MED LIST changes: -IBUP600T16 PO
== END ==
LOC: LAB 08:09
PROVIDERS: ATTEND Internal Medicine Cardiovascular Disease
DX: Z20.822 Contact with and (suspected) exposure to COVID-19 (principal)
CPT/HCPCS: U0003

== ENCOUNTER 2021-05-03 16:24 | Emergency (ER) | payer OTHER ==
[~2021-05-03] VITALS: Ht 165.1 cm; Wt 67.2 kg
--- NOTE | 2021-05-03 17:08 | PHYS DOC ---
Past History Past Medical History: Asthma, COPD (SHANTI JOHNSON APRN) Past Surgical History: Hysterectomy, Oophorectomy (SHANTI JOHNSON APRN) Smoking: Cigarettes Alcohol Use: None Drug Use: None (SHANTI JOHNSON APRN) Adult General Chief Complaint Chief Complaint: FOOT INJURY PAIN HPI HPI 50-year-old female presents to the emergency department complaining of right toes pain and top of foot pain after stumbling off one step on a set of stairs. Patient states that her toes were bent in the wrong direction and she fears she may have broken. Patient denies falling or hurting other parts of her body. Patient states she takes Synthroid, Symbicort, and albuterol MDI for asthma problems and thyroid problems. Patient reports her last menstrual cycle was in 1995. Patient denies any other physical complaints or physical injury. (SHANTI JOHNSON APRN) Review of Systems Review of Systems C 14 body systems of review of systems have been reviewed. See HPI for pertinent positives and negative responses, otherwise all other systems are negative, nonpertinent or noncontributory. Constitutional: Negative except as outlined in HPI above. Skin: Negative except as outlined in HPI above. Eyes: Negative except as outlined in HPI above. HENT: Negative except as outlined in HPI above. Respiratory: Negative except as outlined in HPI above. Cardiovascular: Negative except as outlined in HPI above. GI: Negative except as outlined in HPI above. : Negative except as outlined in HPI above. Musculoskeletal: Negative except as outlined in HPI above. Integument: Negative except as outlined in HPI above. Neurologic: Negative except as outlined in HPI above. Endocrine: Negative except as outlined in HPI above. Lymphatic: Negative except as outlined in HPI above. Psychiatric: Negative except as outlined in HPI above. (SHANTI JOHNSON APRN) Allergies Allergies Allergies Coded Allergies Type Severity Reaction Last Updated Verified nitrofurantoin Allergy Severe sob/anxiety 10/21/20 Yes (SHANTI JOHNSON APRN) Physical Exam Physical Exam Constitutional: Well developed, well nourished, no acute distress, non-toxic appearance. 50-year-old female in no apparent distress. HENT: Normocephalic, atraumatic. Eyes: Conjunctiva normal, no discharge. Neck: Normal range of motion, no stridor. Cardiovascular: No cyanosis appreciated, distal cap refill less than 2 seconds. Lungs & Thorax: Patient is in no respiratory distress, no audible adventitious lung sounds appreciated. Abdomen: Nontender, no abnormalities noted. Skin: Warm, dry, no erythema, no rash. Back: No tenderness, no deformities. Extremities: No tenderness, no cyanosis, no clubbing, ROM intact, no edema. Except for right foot. Limited passive range of motion of toes related to pain response. No swelling, no crepitus, no erythema or edema appreciated, 2+ dorsalis pedis/posterior tibial pulses. No deformities appreciated. Patient ambulated to room favoring right lower extremity. Did not use any assistive devices to ambulate. Neurologic: Alert and oriented X 3, normal motor function, normal sensory function, no focal deficits noted. Psychologic: Affect normal, judgement normal, mood normal. (SHANTI JOHNSON APRN) EKG EKG [] (SHANTI JOHNSON APRN) Radiology/Procedures Radiology/Procedures PATIENT: HORTENCIA FIELDS ACCOUNT: [id number] : 1970 LOCATION: ER AGE: 50 SEX: F EXAM STATUS: REG ER ORD. PHYSICIAN: SHANTI JOHNSON APRN REASON: stubled on a step PROCEDURE: FOOT RIGHT 3V Exam: Right foot 3 views INDICATION: Stubbed on step TECHNIQUE: Frontal, lateral oblique views of the right foot Comparisons: None FINDINGS: Bone mineralization is normal. No acute or healed fractures. Soft tissues are unremarkable. Joint spaces are well-maintained. IMPRESSION: No acute osseous abnormality. Electronically signed by: Shelia Choi MD (05/03/2021 6:17 PM) [facility] (SHANTI JOHNSON APRN) Heart Score C/O Chest Pain: No Risk Factors: Risk Factors: DM, Current or recent (<one month) smoker, HTN, HLP, family history of CAD, obesity. Risk Scores: Risk Factors: DM, Current or recent (<one month) smoker, HTN, HLP, family history of CAD, obesity. (SHANTI JOHNSON APRN) Course & Med Decision Making Course & Med Decision Making Pertinent Labs and Imaging studies reviewed. (See chart for details) 42-year-old female, vital signs reviewed, presents emergency department concerning right foot pain after a stumble on stairs at approximately 3:45 PM today. Physical examination concerning for possible bony fracture versus foot sprain of the right foot. Constitutional: Well developed, well nourished, no acute distress, non-toxic appearance. Order x-ray of right foot, ice packs, p.o. pain medications. Patient reports satisfactory pain relief from pain medications given, discussed x-ray findings interpreted by house radiologist as no acute fracture or bony injury with patient, recommended RICE therapy, Durga wrap with postop shoe placed in ED prior to discharge. Patient amenable to ED discharge planning. Discussed with the patient all findings and diagnostic testing as well as the need to follow-up with their primary care provider for further evaluation and treatment or return to the ED if any new or worsening symptoms. Strict return precautions were also discussed at length, the patient voiced understanding and agreement with the discharge planning. The patient was nontoxic in appearance, in no apparent distress, and hemodynamically stable at the time of disposition. (SHANTI JOHNSON APRN) Dragon Disclaimer Dragon Disclaimer This electronic medical record was generated, in whole or in part, using a voice recognition dictation system. (SHANTI JOHNSON APRN) Attending Co-Sign The patient was seen and interviewed as well as examined at the bedside. The chart was reviewed. The case was discussed. Agree with the plan of care. (KAREN CORDON DO) Departure Departure: Impression: Primary Impression: Right foot sprain Disposition: 01 HOME / SELF CARE / HOMELESS Condition: GOOD Referrals: LIV ISSA MD (PCP) Patient Instructions: Elastic Bandage and RICE, Foot Sprain, RICE - Routine Care for Injuries, [id number] Additional Instructions: You were seen today in the emergency department after a injury to your right foot while stumbling down a step today. Your physical examination and x-ray was reassuring and that there is no broken bone. However I believe your injury has resulted in a right foot sprain, as we discussed please wear postop shoe and Durga compression garment, follow RICE therapy, rest, ice, compression, elevation. Use ice packs 30 minutes on and 30 minutes off while awake for the next 42 to 72 hours. Please follow-up with Dr. Issa within the next few days for reevaluation for ongoing pain management of your foot pain. Please return to the emergency department for worsening symptoms or other concerns. Thank you for visiting our Emergency Department. It was a pleasure taking care of you today in the emergency department and we appreciate you trusting us with your care. If any additional problems come up don't hesitate to return to visit us. Please follow up with your primary care provider so they can plan additional care if needed and know about the problem that you had. If symptoms worsen come back to the Emergency Department. Any concerning symptoms that start such as chest pain, shortness of air, weakness or numbness on one side of the body, running high fevers or any other concerning symptoms return to the ER. EMERGENCY DEPARTMENT GENERAL DISCHARGE INSTRUCTIONS Thank you for coming to [facility] (ED) today and trusting us with you care. We trust that you had a positivie experience in our Emergency Department. If you wish to speak to the department management, you may call the director at [phone]. YOUR FOLLOW UP INSTRUCTIONS ARE FOLLOWS: 1. Do you have a private Doctor? If you do not have a private doctor, please ask for a resource list of physicians or clinics that may be able to assist you with follo w up care. 2. The Emergency Physician has interpreted your x-rays. The X-Ray specialist will also review them. If there is a change in the findings, you will be notified in 48 hours when at all possible. 3. A lab test or culture has been done, your results will be reviewed and you will be notified if you need a change in treatment. ADDITIONAL INSTRUCTIONS AND INFORMATION: 1. Your care today has been supervised by a physician who is specially trained in emergency care. Many problems require more than one evaluation for a complete diagnosis and treatment. We recommend that you schedule your follow up appointment as rec ommended to ensure complete treatment of you illness or injury. If you are unable to obtain follow up care and continue to have a problem, or if your condition worsens, we recommend that you return to the ED. 2. We are not able to safely determine your condition over the phone nor are we able to give sound medical advice over the phone. For these safety reasons, if you call for medical advice we will ask you to come to the ED for further evaluation. 3. If you have any questions regarding these discharge instructions please call the ED at [phone]. SAFETY INFORMATION: In the interest of safety, wellness, and injury prevention; we encourage you to wear your sealbelt, if you smoke; quite smoking, and we encourage family to use a protective helmet for bicycling and other sporting events that present an increased risk for head injury. IF YOUR SYMPTOMS WORSEN OR NEW SYMPTOMS DEVELOP, OR YOU HAVE CONCERNS ABOUT YOUR CONDITION; OR IF YOUR CONDITION WORSENS WHILE YOU ARE WAITING FOR YOUR FOLLOW UP APPOINTMENT; EITHER CONTACT YOUR PRIMARY CARE DOCTOR, THE PHYSICIAN WHOSE NAME AND NUMBER YOU WERE GIVEN, OR RETURN TO THE ED IMMEDIATELY. Scripts Ibuprofen (IBUPROFEN) 600 Mg Tablet 600 MG PO Q6-8HRS PRN for PAIN, #30 TAB 0 Refills Prov: SHANTI JOHNSON APRN 05/03/21 Problem Qualifiers Primary Impression: Right foot sprain Encounter type: initial encounter Qualified Codes: S93.601A - Unspecified sprain of right foot, initial encounter SHANTI JOHNSON APRN May 03, 2021 17:08 KAREN CORDON DO May 05, 2021 15:38
[2021-05-03] MEDS ORDERED: HYDROcodone/APAP 5/325MG 1 TAB TABLET PO ONE (17:15)
--- NOTE | 2021-05-03 18:20 | RAD ---
Exam: Right foot 3 views INDICATION: Stubbed on step TECHNIQUE: Frontal, lateral oblique views of the right foot Comparisons: None FINDINGS: Bone mineralization is normal. No acute or healed fractures. Soft tissues are unremarkable. Joint spa cecille are well-maintained. IMPRESSION: No acute osseous abnormality. Electronically signed by: Shelia Choi MD (05/03/2021 6:17 PM) [facility]
[2021-05-03] MEDS ORDERED: IBUP600T16 PO (19:00)
[2021-05-03 19:26] VITALS: BP 120/87
== END 2021-05-03 19:27 | disposition home or self-care (01) ==
LOC: ER 16:24
DX: S93.601A Unspecified sprain of right foot, initial encounter (principal); J44.9 Chronic obstructive pulmonary disease, unspecified; Z88.3 Allergy status to other anti-infective agents; W10.8XXA Fall (on) (from) other stairs and steps, initial encounter; Y93.89 Activity, other specified; Y92.89 Other specified places as the place of occurrence of the external cause; Y99.8 Other external cause status
CPT/HCPCS: 73630; 99283

== ENCOUNTER → 2021-05-12 | Outpatient (CLI) | payer OTHER ==
[2021-05-03 19:26] VITALS: BP 120/87
[~2021-05-12] MED LIST changes: +IBUP600T16 PO
== END ==
LOC: LAB 08:34
PROVIDERS: ATTEND Internal Medicine Cardiovascular Disease
DX: Z20.822 Contact with and (suspected) exposure to COVID-19 (principal)
CPT/HCPCS: U0003

== ENCOUNTER → 2021-05-21 | Outpatient (CLI) | payer OTHER ==
[2021-05-03 19:26] VITALS: BP 120/87
== END ==
LOC: LAB 06:45
PROVIDERS: ATTEND Internal Medicine Cardiovascular Disease
DX: Z20.822 Contact with and (suspected) exposure to COVID-19 (principal)
CPT/HCPCS: C9803; U0003

== ENCOUNTER → 2021-05-27 | Outpatient (CLI) | payer OTHER ==
[2021-05-03 19:26] VITALS: BP 120/87
== END ==
LOC: LAB 06:00
PROVIDERS: ATTEND Internal Medicine Cardiovascular Disease
DX: Z20.822 Contact with and (suspected) exposure to COVID-19 (principal)
CPT/HCPCS: C9803; U0003

== ENCOUNTER → 2021-06-03 | Outpatient (CLI) | payer OTHER | LOC: LAB 06:31 | PROVIDERS: ATTEND Internal Medicine Cardiovascular Disease | DX: Z20.822 Contact with and (suspected) exposure to COVID-19 (principal) | CPT/HCPCS: U0003 ==

== ENCOUNTER → 2021-06-11 | Outpatient (CLI) | payer OTHER | LOC: LAB 03-11 05:45 | PROVIDERS: ATTEND Internal Medicine Cardiovascular Disease | DX: Z20.822 Contact with and (suspected) exposure to COVID-19 (principal) | CPT/HCPCS: U0003 ==

== ENCOUNTER → 2021-06-17 | Outpatient (CLI) | payer OTHER | LOC: LAB 11:10 | PROVIDERS: ATTEND Internal Medicine Cardiovascular Disease | DX: Z20.822 Contact with and (suspected) exposure to COVID-19 (principal) | CPT/HCPCS: U0003 ==

== ENCOUNTER → 2021-06-24 | Outpatient (CLI) | payer OTHER | LOC: LAB 13:39 | PROVIDERS: ATTEND Internal Medicine Cardiovascular Disease | DX: Z20.822 Contact with and (suspected) exposure to COVID-19 (principal) | CPT/HCPCS: U0003 ==

== ENCOUNTER → 2021-06-30 | Outpatient (CLI) | payer OTHER | LOC: LAB 05:30 | PROVIDERS: ATTEND Internal Medicine Cardiovascular Disease | DX: Z20.822 Contact with and (suspected) exposure to COVID-19 (principal) | CPT/HCPCS: C9803; U0003 ==

== ENCOUNTER → 2021-07-08 | Outpatient (CLI) | payer OTHER | LOC: SPEC 05:46 | PROVIDERS: ATTEND Internal Medicine Cardiovascular Disease | DX: Z20.822 Contact with and (suspected) exposure to COVID-19 (principal) | CPT/HCPCS: U0003 ==

== ENCOUNTER → 2021-07-15 | Outpatient (CLI) | payer OTHER | LOC: LAB 14:24 | PROVIDERS: ATTEND Internal Medicine Cardiovascular Disease | DX: Z20.822 Contact with and (suspected) exposure to COVID-19 (principal) | CPT/HCPCS: C9803; U0003 ==

== ENCOUNTER → 2021-07-22 | Outpatient (CLI) | payer OTHER | LOC: LAB 09:56 | PROVIDERS: ATTEND Internal Medicine Cardiovascular Disease | DX: Z20.822 Contact with and (suspected) exposure to COVID-19 (principal) | CPT/HCPCS: U0003 ==

== ENCOUNTER → 2021-07-29 | Outpatient (CLI) | payer OTHER | LOC: LAB 10:25 | PROVIDERS: ATTEND Internal Medicine Cardiovascular Disease | DX: Z20.822 Contact with and (suspected) exposure to COVID-19 (principal) | CPT/HCPCS: U0003 ==

== ENCOUNTER → 2021-08-04 | Outpatient (CLI) | payer OTHER | LOC: LAB 06:25 | PROVIDERS: ATTEND Internal Medicine Cardiovascular Disease | DX: Z20.822 Contact with and (suspected) exposure to COVID-19 (principal) | CPT/HCPCS: C9803; U0003 ==

== ENCOUNTER → 2021-08-19 | Outpatient (CLI) | payer OTHER | LOC: LAB 05:45 | PROVIDERS: ATTEND Internal Medicine Cardiovascular Disease | DX: Z20.822 Contact with and (suspected) exposure to COVID-19 (principal) | CPT/HCPCS: C9803; U0003 ==

== ENCOUNTER → 2021-08-22 | Outpatient (CLI) | payer OTHER | LOC: LAB 06:30 | PROVIDERS: ATTEND Internal Medicine Cardiovascular Disease | DX: Z20.822 Contact with and (suspected) exposure to COVID-19 (principal) | CPT/HCPCS: C9803; U0003 ==

== ENCOUNTER → 2021-08-28 | Outpatient (CLI) | payer OTHER | LOC: LAB 13:43 | PROVIDERS: ATTEND Internal Medicine Cardiovascular Disease | DX: Z20.822 Contact with and (suspected) exposure to COVID-19 (principal) | CPT/HCPCS: U0003 ==

== ENCOUNTER → 2021-09-07 | Outpatient (CLI) | payer OTHER | LOC: LAB 15:34 | PROVIDERS: ATTEND Internal Medicine Cardiovascular Disease | DX: R05.9 Cough, unspecified (principal); R06.02 Shortness of breath; J02.9 Acute pharyngitis, unspecified; R68.83 Chills (without fever); R51.9 Headache, unspecified; R53.81 Other malaise; R19.7 Diarrhea, unspecified; R09.81 Nasal congestion; R11.2 Nausea with vomiting, unspecified; Z20.822 Contact with and (suspected) exposure to COVID-19 | CPT/HCPCS: U0003 ==

== ENCOUNTER → 2021-09-19 | Outpatient (CLI) | payer OTHER | LOC: LAB 05:30 | PROVIDERS: ATTEND Internal Medicine Cardiovascular Disease | DX: Z20.822 Contact with and (suspected) exposure to COVID-19 (principal) | CPT/HCPCS: C9803; U0003 ==

== ENCOUNTER → 2021-10-01 | Outpatient (CLI) | payer OTHER | LOC: LAB 06:38 | PROVIDERS: ATTEND Internal Medicine Cardiovascular Disease | DX: Z20.822 Contact with and (suspected) exposure to COVID-19 (principal) | CPT/HCPCS: U0003 ==

== ENCOUNTER → 2021-10-08 | Outpatient (CLI) | payer OTHER | LOC: LAB 13:31 | PROVIDERS: ATTEND Internal Medicine Cardiovascular Disease | DX: Z20.822 Contact with and (suspected) exposure to COVID-19 (principal) | CPT/HCPCS: U0003 ==

== ENCOUNTER → 2021-10-14 | Outpatient (CLI) | payer OTHER | LOC: LAB 05:45 | PROVIDERS: ATTEND Internal Medicine Cardiovascular Disease | DX: Z20.822 Contact with and (suspected) exposure to COVID-19 (principal) | CPT/HCPCS: C9803; U0003 ==

== ENCOUNTER → 2021-10-20 | Outpatient (CLI) | payer OTHER | LOC: LAB 05:45 | PROVIDERS: ATTEND Internal Medicine Cardiovascular Disease | DX: Z20.822 Contact with and (suspected) exposure to COVID-19 (principal) | CPT/HCPCS: C9803; U0003 ==

== ENCOUNTER 2021-11-30 13:59 | Emergency (ER) | payer OTHER ==
[~2021-11-30] VITALS: Ht 165.1 cm; Wt 67.9 kg
[2021-11-30 14:00] VITALS: BP 117/82
[2021-11-30] MEDS ORDERED: AMOX1TAB11 PO (14:22)
[2021-11-30] MEDS ORDERED: METH4TAB2 PO (14:22)
--- NOTE | 2021-11-30 14:22 | PHYS DOC ---
Past History Past Medical History: Asthma, COPD Past Surgical History: Hysterectomy, Oophorectomy Smoking: Cigarettes Alcohol Use: None Drug Use: None General Adult EDM: Chief Complaint: FLU SYMPTOM HPI: HPI: Patient is a 51-year-old female who presents to the emergency department with a 2-day history of nasal congestion, facial pressure, nausea, productive cough, body aches, fevers and decreased appetite. Patient has been vaccinated for COVID-19 and influenza. She reports that she has been taking Benadryl, Mucinex and Tylenol at home. Patient has a history of COPD and has Symbicort and albuterol inhalers that she has been using. Patient denies loss of taste or smell, recent travel, sick exposures, shortness of breath, vomiting, diarrhea. Review of Systems: Review of Systems: Constitutional: See HPI HENT: See HPI Respiratory: See HPI GI: See HPI Musculoskeletal: See HPI Allergies: Allergies: Allergies Coded Allergies Type Severity Reaction Last Updated Verified nitrofurantoin Allergy Severe sob/anxiety 10/21/20 Yes Physical Exam: PE: Constitutional: Well developed, well nourished, no acute distress, non-toxic appearance. [] HENT: Normocephalic, atraumatic, bilateral external ears normal, pain with palpation of maxillary/ethmoid and frontal sinuses, oropharynx moist, no oral exudates, no cracking or dryness of lips, nose normal. [] Eyes: PERRL, EOMI, conjunctiva normal, no discharge. [] Neck: Normal range of motion, no stridor Cardiovascular:Heart rate regular rhythm, no murmur [] Lungs & Thorax: Bilateral breath sounds clear to auscultation [] Abdomen: Soft and flat Skin: Warm, dry, no erythema, no rash, cap refill less than 2 seconds, good skin turgor. [] Back: Full range of motion Extremities: No tenderness, no cyanosis, no clubbing, ROM intact, no edema. [] Neurologic: Alert and oriented X 3, normal motor function, normal sensory function, no focal deficits noted. [] Psychologic: Affect normal, judgement normal, mood normal. [] EKG: EKG: [] Radiology/Procedures: Radiology/Procedures: [] Heart Score: C/O Chest Pain: N/A Risk Factors: Risk Factors: DM, Current or recent (<one month) smoker, HTN, HLP, family history of CAD, obesity. Risk Scores: Score 0 - 3: 2.5% MACE over next 6 weeks - Discharge Home Score 4 - 6: 20.3% MACE over next 6 weeks - Admit for Clinical Observation Score 7 - 10: 72.7% MACE over next 6 weeks - Early Invasive Strategies Course & Med Decision Making: Course & Med Decision Making Pertinent Labs and Imaging studies reviewed. (See chart for details) [] Patient presents to the emergency department with nasal congestion, facial pressure and multiple viral symptoms. Patient will be tested for influenza and COVID-19. Patient would like to be discharged home before her results, they are pending at this time we will call her with a positive result.. Patient does have pain with palpation of sinuses. She will be discharged home with an antibiotic for sinusitis as well as a steroid. He is advised to continue Mucinex. She can take Tylenol ibuprofen for pain. I discussed with patient all findings and diagnostic testing as well as the need to follow-up with PCP for further evaluation and treatment or return to the ER if any new or worsening symptoms. Strict return precautions were also discussed at length. Patient voiced understanding and agreement with the plan. Patient is hemodynamically stable at the time of disposition. Dragon Disclaimer: [employer] Disclaimer: This electronic medical record was generated, in whole or in part, using a voice recognition dictation system. Departure Departure: Impression: Primary Impression: Sinusitis Qualified Codes: J01.10 - Acute frontal sinusitis, unspecified Disposition: HOME / SELF CARE / HOMELESS Condition: GOOD Referrals: LIV ISSA MD (PCP) Patient Instructions: Sinusitis Additional Instructions: You are seen in the emergency department today for multiple complaints. He tested you for influenza and COVID and you will be notified of any positive result. We will be sending you home with an antibiotic and a steroid to treat sinusitis. Please start and finish them completely. Follow-up with your primary care provider tomorrow regarding your ER visit. Return to the emergency department if you develop shortness of breath, chest pain, intractable nausea or vomiting, high fevers refractory to treatment, weakness. Scripts Methylprednisolone (MEDROL) 4 Mg Tab.ds.pk 1 PKG PO UD for inflammation, #1 PKG 0 Refills Prov: HANNA CUEVAS [employer]IC[employer]ER 11/30/21 Amoxicillin/Potassium Clav (AMOX TR-K CLV 875-125 MG TAB) 1 Each Tablet 1 TAB PO BID for sinusitis for 7 Days, #14 TAB 0 Refills Prov: HANNA CUEVAS APRN 11/30/21 HANNA CUEVAS APRN Nov 30, 2021 14:22
[2021-11-30 15:09] LABS: INFLUENZA A PATIENT NEGATIVE (NEGATIVE); INFLUENZA B PATIENT NEGATIVE (NEGATIVE)
== END 2021-11-30 14:36 | disposition home or self-care (01) ==
LOC: ER 13:59
DX: J01.10 Acute frontal sinusitis, unspecified (principal); J44.9 Chronic obstructive pulmonary disease, unspecified; F17.210 Nicotine dependence, cigarettes, uncomplicated; Z20.822 Contact with and (suspected) exposure to COVID-19; Z88.8 Allergy status to other drugs, medicaments and biological substances
CPT/HCPCS: 87428; 99283; C9803; U0003

== ENCOUNTER 2022-01-15 15:00 | Inpatient (IN) | payer OTHER ==
[~2022-01-15] VITALS: Ht 165.1 cm; Wt 66.2 kg
[~2022-01-15 15:00] MED LIST changes: +AMOX1TAB11 PO; +METH4TAB2 PO
[2022-01-15 19:00] VITALS: BP 110/74
[2022-01-15] MEDS: IPRATRPIUM/ALBUTEROL 0.5/2.5MG 3 ML NEBU. NEB SCH (20:00)
[2022-01-15] MEDS ORDERED: CONTRAST GIVEN. MC PRN (23:45)
[2022-01-16] MEDS ORDERED: ALBUTEROL SULFATE 2.5 MG/3 ML NEBU. NEB PRN
[2022-01-16] MEDS ORDERED: NICOTINE 21MG PATCH. TD ONE
[2022-01-16] MEDS ORDERED: diphenhydrAMINE HCL 25 MG CAPSULE PO PRN
[2022-01-16] MEDS ORDERED: IOHEXOL 350 MG/ML 100 ML VIAL. IV ONE
[2022-01-16] MEDS ORDERED: IOHEXOL 300 MG/ML 75 ML VIAL. IV ONE (00:15)
[2022-01-16] MEDS: IPRATRPIUM/ALBUTEROL 0.5/2.5MG 3 ML NEBU. NEB SCH ×5 (00:15→19:34)
[2022-01-16] MEDS: KETOROLAC 30 MG/ML VIAL. IVP PRN ×3 (00:15→19:46)
[2022-01-16] MEDS: methylPREDNISolone SOD SUCC PF 40 MG/ML VIAL. IV SCH ×4 (00:15→21:56)
[2022-01-16] MEDS: LORazepam 0.5 MG TABLET PO PRN ×4 (00:15→19:46)
[2022-01-16 01:00] VITALS: BP 114/71
[2022-01-16 01:24] LABS: BASO % 1 % (0-3); EOS % 0 % (0-3); HEMATOCRIT 44.9 % (36.0-47.0); HEMOGLOBIN 14.9 g/dL (12.0-15.5); LYMPH # 0.7 x10^3/uL (1.0-4.8); LYMPH % 11 % (24-48); MEAN CORPUSCULAR HEMOGLOBIN 31 pg (25-35); MEAN CORPUSCULAR HGB CONC 33 g/dL (31-37); MEAN CORPUSCULAR VOLUME 93 fL (79-100); MONO % 1 % (0-9); NEUT # 5.9 x10^3uL (1.8-7.7); NEUT % 88 % (31-73); PLATELET COUNT 264 x10^3/uL (140-400); RED BLOOD COUNT 4.85 x10^6/uL (3.50-5.40); RED CELL DISTRIBUTION WIDTH 13.3 % (11.5-14.5); WHITE BLOOD COUNT 6.8 x10^3/uL (4.0-11.0)
[2022-01-16 01:26] LABS: CALCIUM 9.1 mg/dL (8.5-10.1); CREATININE 0.8 mg/dL (0.6-1.0); GFR 76.2; POTASSIUM 4.2 mmol/L (3.5-5.1)
[2022-01-16 01:34] LABS: BACTERIA,URINE 0 /HPF (0-FEW); CLARITY,URINE CLEAR; COLOR,URINE YELLOW; GLUCOSE,URINE 500 mg/dL (NEG); NITRITE,URINE NEG (NEG); RBC,URINE 0 /HPF (0-2); UROBILINOGEN,URINE 0.2 mg/dL (0.2 mg/dL); WBC,URINE OCC /HPF (0-4)
[2022-01-16 01:35] LABS: SQUAMOUS EPITHELIAL CELL,UR FEW /LPF
--- NOTE | 2022-01-16 02:37 | RAD ---
Study: CT chest with contrast INDICATION: Shortness of breath. COPD exacerbation. COMPARISON: Correlation is made to a CT abdomen/pelvis from 12/31/2020 TECHNIQUE: Helical CT imaging of the chest performed after the intravenous administration of contrast . Coronal and sagittal reformats were obtained. One or more of the following individualized dose reduction techniques were utilized for this examinat ion: 1. Automated exposure control 2. Adjustment of the mA and/or kV according to patient size 3. Use of iterative reconstruction technique. FINDINGS: Lungs: Centrilobular emphysema. No lobar consolidation. Mild atelectasis within the left lower lobe a djacent to a hiatal hernia. No suspicious pulmonary nodule that would warrant short-term follow-up. N o pleural effusion or pneumothorax. Minimal intermittent mucous plugging at the lower lobes. Vasculature: No aortic aneurysm or dissection. Mild scattered calcified and noncalcified atheromatous plaque. Patent central pulmonary arteries with incomplete evaluation of the more distal segments. Mediastinum/joo: Moderate-sized hiatal hernia. No lymphadenopathy by size criteria. Neck/axilla/chest wall: No significant finding. Upper abdomen: A few subcentimeter low-attenuation foci within the liver were present on the comparis on CT abdomen/pelvis. Bones: No acute or aggressive abnormality. Mild degenerative changes. IMPRESSION: 1. Relatively mild emphysematous changes of the lungs. No localized airspace infiltrate to suggest p neumonia. 2. Moderate-sized hiatal hernia. Electronically signed by: ROSAURA SANCHEZ MD (01/16/2022 2:18 AM) [facility]
[2022-01-16 05:53] VITALS: BP 121/80
[2022-01-16] MEDS: LEVOTHYROXINE 50 MCG TABLET PO SCH (05:58)
[2022-01-16] MEDS: NICOTINE 21MG PATCH. TD SCH (08:18)
[2022-01-16] MEDS: LACTOBACILLUS RHAMNOSUS GG 1 CAPSULE. PO SCH ×2 (08:20→19:46)
[2022-01-16] MEDS ORDERED: AZITHROMYCIN 250 MG TABLET. PO SCH (09:00)
[2022-01-16] MEDS ORDERED: NON FORMULARY ITEM (Ipratropium Bromide (Atrovent Hfa) 2 PUFF) IH PRN (09:30)
[2022-01-16] MEDS ORDERED: ALPRAZolam 0.5 MG TABLET PO PRN (09:30)
[2022-01-16] MEDS ORDERED: ONDANSETRON ODT 4 MG TAB.RAPDIS PO PRN (09:30)
--- NOTE | 2022-01-16 10:40 | EKG ---
[address] [address] Test Date: 2022-01-16 Test Time: 09:51:08 Pat Name: HORTENCIA FIELDS Department: Room: 119 A Gender: F Tailer Off: YAQUELIN : 1970 Requested By: LIV ISSA Order Number: [id number] Reading MD: Measurements Intervals [place] Rate: 98 P: 79 OR: 134 QRS: 79 QRSD: 86 T: 72 QT: 288 QTc: 369 Interpretive Statements SINUS RHYTHM QRS(T) CONTOUR ABNORMALITY CONSIDER ANTEROLATERAL MYOCARDIAL DAMAGE POSSIBLY ABNORMAL ECG RI6.01 No previous ECG available for comparison
[2022-01-16 11:45] VITALS: BP 127/82
[2022-01-16] MEDS: PHENAZOPYRIDINE 200 MG TABLET. PO SCH ×3 (14:10→19:55)
[2022-01-16 14:15] VITALS: BP 92/54
[2022-01-16 19:40] VITALS: BP 124/73
[2022-01-16 20:53] LABS: ALBUMIN 3.6 g/dL (3.4-5.0); ALBUMIN/GLOBULIN RATIO 1.2 (1.0-1.7); CALCIUM 8.8 mg/dL (8.5-10.1); GFR 58.9; POTASSIUM 3.6 mmol/L (3.5-5.1); TOTAL BILIRUBIN 0.1 mg/dL (0.2-1.0); TOTAL PROTEIN 6.7 g/dL (6.4-8.2)
[2022-01-16] MEDS: ZOLPIDEM 5 MG TABLET. PO PRN (21:58)
[2022-01-16 22:14] VITALS: BP 131/85
[2022-01-17] MEDS: ZOLPIDEM 5 MG TABLET. PO PRN (00:05)
[2022-01-17 01:07] LABS: THYROXINE 5.9 ug/dL (4.5-12.0)
--- NOTE | 2022-01-17 03:18 | PN ---
SUBJECTIVE: This is a 51-year-old female with about 8-week history of shortness of breath, coughing, severe bronchospasms to the point of severe incontinence and aggravation of her hiatal hernia. The patient had been treated as an outpatient through the Emergency Room a couple times and the patient failed to make any progress and was having difficulty breathing just walking down on a level ground. The patient finally came in. See the H and P. She was admitted to the hospital. She has made good progress with IV steroids and aggressive pulmonary toilet. Nicotine patch for smoking cessation. The patient had chest x-ray as an outpatient showed some emphysema as well as the CT scan showed a moderate hiatal hernia with atelectasis. The patient's bronchospasm has diminished. OBJECTIVE: VITAL SIGNS: Blood pressure 120/80, respiratory rate 18, pulse 99, afebrile, 92 on room air. GENERAL: The patient otherwise alert and oriented, looks a little healthier this morning. Does have damage to her right clavicle where apparently she had such severe bronchospasm. She tripped and fell and hit the edge of a counter on her right clavicle. X-rays in the office did not show any obvious fractures there, but obviously was very swollen and tender there. Otherwise, the patient is alert and oriented. Speech fluent, spontaneous. Appropriate and pleasant white female. LUNGS: Diminished, some crackles in the bases, but otherwise improved movement of air. CARDIOVASCULAR: Regular sinus rhythm. ABDOMEN: Soft, nontender. EXTREMITIES: No clubbing, cyanosis or edema. Some tenderness to the epigastric or periumbilical area from previous areas, but apparently she has had normal bowel movements and colonoscopy and EGD here in the last few years. We will continue to monitor that. Otherwise, we will continue on her IV antibiotic therapy as well as her steroids and aggressive pulmonary toilet. IMPRESSION: Acute on top of chronic exacerbation of chronic obstructive pulmonary disease, secondary emphysema, acute bronchitis, bronchospasm, acute hiatal hernia, moderate urinary incontinence secondary to bronchospasm. PLAN: The patient continue to be monitored and make further evaluation on her as indicated and adjust her medications. Hopefully, ready for discharge her soon. CAR/KENNEDY/VERENA DR: Mariusz TID: [id number]
[2022-01-17 05:06] VITALS: BP 113/76
[2022-01-17] MEDS: IPRATRPIUM/ALBUTEROL 0.5/2.5MG 3 ML NEBU. NEB SCH ×2 (05:31→10:33)
[2022-01-17] MEDS: methylPREDNISolone SOD SUCC PF 40 MG/ML VIAL. IV SCH (05:33)
[2022-01-17] MEDS: LEVOTHYROXINE 50 MCG TABLET PO SCH (05:34)
[2022-01-17] MEDS: NICOTINE 21MG PATCH. TD SCH (08:14)
[2022-01-17] MEDS: LORazepam 0.5 MG TABLET PO PRN (08:15)
[2022-01-17] MEDS: LACTOBACILLUS RHAMNOSUS GG 1 CAPSULE. PO SCH (08:17)
[2022-01-17] MEDS ORDERED: AZITHROMYCIN 250 MG TABLET. PO SCH (09:00)
[2022-01-17 10:54] VITALS: BP 123/83
[2022-01-17] MEDS ORDERED: BUTA1CAP57 PO (11:12)
[2022-01-17] MEDS ORDERED: ZOLP5TAB PO (11:12)
[2022-01-17] MEDS ORDERED: Nicotine 21MG Patch TD (11:12)
[2022-01-17] MEDS ORDERED: LEVO50TA PO (11:12)
--- NOTE | 2022-01-18 06:05 | DS ---
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 She has been in and out of Emergency Rooms and urgent care and not progressing. She is actually deteriorated to the point where she cannot walk more than 10 feet without getting extremely short of breath and extremely dyspneic. As a result of that, the patient was brought in for aggressive pulmonary toilet as she has had an exacerbation of her asthma and emphysema, basically COPD. The patient denied any chest pain. EKG showed sinus rhythm, consider possible old anterior infarction, possible although not observable, rate of 98. The patient was placed on IV steroids, aggressive pulmonary toilet. She was placed on antibiotic therapy IV and she made good progress in that regard. The patient had a CT of the chest that showed emphysematous changes, moderate size hiatal hernia. She thinks she is precipitating that with her heavy coughing. Otherwise, sodium and potassium 130 and 3.6, BUN and creatinine are 12 and 1. Blood sugars were a little bit elevated probably from the steroids. We will continue to monitor that carefully as an outpatient. Otherwise, labs were fairly decent as noted. Her TSH was 2.022. Thyroid was 5.9, T3 was normal. Glucose 145-155. DIAGNOSES: [id number] emphysema with acute bronchitis, acute respiratory distress, hyperglycemia probably secondary to steroids. The patient was continued to be monitored as an outpatient, given a week off from work, should be on a regular diet, decreased activity. She has been given ____ nicotine patches. See MRAD. Regular diet, decreased activity and she will be followed up as an outpatient. CAR/KENNEDY/ASVI DR: Mariusz TID: [id number]
== END 2022-01-17 12:10 | disposition home or self-care (01) | DRG 202 ==
LOC: 1 SOUTH 15:00
PROVIDERS: ADMIT Family Medicine; ATTEND Family Medicine
DX: J20.9 Acute bronchitis, unspecified (principal); J98.11 Atelectasis; F17.200 Nicotine dependence, unspecified, uncomplicated; I25.2 Old myocardial infarction; J43.9 Emphysema, unspecified; J45.909 Unspecified asthma, uncomplicated; K44.9 Diaphragmatic hernia without obstruction or gangrene; N39.498 Other specified urinary incontinence; T38.0X5A Adverse effect of glucocorticoids and synthetic analogues, initial encounter; Y92.89 Other specified places as the place of occurrence of the external cause; Z88.8 Allergy status to other drugs, medicaments and biological substances
CPT/HCPCS: 36415; 71260; 80048; 80053; 81001; 83605; 84436; 84443; 84480; 85025; 85379; 93005; 94640; J0696; J1885; J2920; Q0163; Q9967; J7613